=== PATIENT | female | born 1955 | race Caucasian/White ===

== ENCOUNTER → 2016-12-16 | Outpatient (CLI) | payer OTHER ==
[~2016-12-16] MED LIST: ADVAIR 250/501 EA INH; CARDIZEM LA240 MG PO; DARVOCET N 1001 TAB PO; HYDROCODONE BIT1 T11 PO; JANUVIA100 MG PO; LEVOFLOXACIN500 MG PO; LIPITOR40 MG PO; MAVIK2 MG PO; Metformin Hydr500 MG PO; PERCOCET 325 MG1 TA2 PO; ULTRAM50 MG PO; VALTREX1 GM PO; ZESTRIL2.5 MG PO; ZOFRAN ODT4 MG SL
== END | disposition home or self-care (01) ==
LOC: LAB 01:34
DX: L72.8 Other follicular cysts of the skin and subcutaneous tissue (principal)

== ENCOUNTER → 2016-12-26 | Outpatient (CLI) | payer OTHER ==
[2016-12-26 04:14] LABS: HEMOGLOBIN A1c 7.4 % (4.8-5.6)
== END | disposition home or self-care (01) ==
LOC: LAB 03:33
PROVIDERS: Internal Medicine
DX: E11.9 Type 2 diabetes mellitus without complications (principal)

== ENCOUNTER → 2017-01-04 | Day surgery (SDC) | payer OTHER ==
[2017-01-02 08:12] VITALS: BP 149/84
--- NOTE | ~2017-01-04 | PROC NOTE ---
[place], [place] PROCEDURE NOTE NAME: [id number] UNIT #: [id number] ROOM: DOCTOR: VAUGHN HANSON MD BIRTHDATE: [birth year] DOS: 01/04/2017 PREOPERATIVE DIAGNOSIS: Neck sebaceous cyst. POSTOPERATIVE DIAGNOSIS: Neck sebaceous cyst. PROCEDURE: Excision of neck sebaceous cyst. SURGEON: Vaughn Hanson MD ELECTRONIC ORGAN TECHNICIAN: None. ANESTHESIA: Local (1% plain lidocaine). INDICATIONS: This is a 61-year-old lady with a long-standing history of neck sebaceous cyst, who is here for the above-mentioned procedure. The procedure and its complications explained to the patient in detail. Complications that were discussed included but were not limited to bleeding, infection and prolonged pain. She agreed to proceed. DESCRIPTION OF PROCEDURE: After identifying the patient, the patient was brought to the operating suite and placed in the right lateral position. After the parts were painted and draped in the usual sterile fashion, timeout procedure was called. An incision was marked, local anesthesia was injected in the line of the incision. The incision was made and deepened in layers. The cyst was identified and was excised after it was dissected free from surrounding tissue. It was sent for histopathological diagnosis. Hemostasis was achieved with the help of electrocautery. Thereafter, the subcutaneous tissue was irrigated and approximated with the help of 3-0 Vicryl in an interrupted fashion and the skin edges were approximated with the help of 4-0 Vicryl in a subcuticular running fashion. Dressing was placed. The patient tolerated the procedure well. There were no complications. The patient was taken to the recovery room in a stable fashion. Vaughn Hanson MD CM:PROCNOTE:PROCEDURE NOTE 19 VAUGHN HANSON MD
[2017-01-04 07:08] VITALS: BP 144/77
[2017-01-04 07:38] VITALS: BP 137/96
[2017-01-04 07:43] VITALS: BP 154/95
[2017-01-04 07:48] VITALS: BP 146/93
[2017-01-04 07:53] VITALS: BP 131/98
== END | disposition home or self-care (01) ==
LOC: SDC 01-02 08:00
DX: L72.3 Sebaceous cyst (principal); E11.9 Type 2 diabetes mellitus without complications; F41.9 Anxiety disorder, unspecified; E78.00 Pure hypercholesterolemia, unspecified; Z83.3 Family history of diabetes mellitus; Z86.718 Personal history of other venous thrombosis and embolism

== ENCOUNTER → 2018-02-05 | Outpatient (CLI) | payer OTHER ==
[2018-02-06 00:35] LABS: BASO % 0.3 % (0.0-1.0); EOS # 0.1 10*3/uL (0.0-0.4); EOS % 1.1 % (1.0-4.0); HEMATOCRIT 45.8 % (37.0-47.0); HEMOGLOBIN 15.5 g/dl (12.0-16.0); LYMPH # 1.8 10*3/uL (1.3-4.4); LYMPH % 19.1 % (27.0-41.0); MEAN CELL VOLUME 94.2 fl (81.0-99.0); MEAN CORPUSCULAR HGB 31.9 pg (27.0-31.0); MEAN CORPUSCULAR HGB CONC 33.8 g/dl (33.0-37.0); MEAN PLATELET VOLUME 10.1 fl (9.6-12.3); MONO # 0.7 10*3/uL (0.1-1.0); MONO % 7.5 % (3.0-9.0); NEUT # 6.6 10*3/uL (2.3-7.9); NEUT % 71.7 % (47.0-73.0); PLATELET COUNT AUTOMATED 226 10*3/uL (130-400); RED BLOOD COUNT 4.86 10*6/uL (4.10-5.10); RED CELL DISTRI WIDTH 12.8 % (0-14.5); WHITE BLOOD COUNT 9.3 10*3/uL (4.8-10.8)
[2018-02-06 00:57] LABS: ALBUMIN 3.6 gm/dl (3.1-4.5); ALKALINE PHOSPHATASE 92 U/L (45-117); BUN 14 mg/dl (7-24); CHLORIDE 104 mmol/L (98-107); CHOLESTEROL 149 mg/dL (<200); FREE T4 0.92 ng/dl (0.76-1.46); HDL CHOLESTEROL 47 mg/dl (40-60); LDL CHOLESTEROL 77 mg/dL (9-159); POTASSIUM 4.4 mmol/L (3.5-5.1); SGOT/AST 8 IU/L (3-35); SGPT/ALT 24 U/L (12-78); SODIUM 136 mmol/L (136-145); TOTAL PROTEIN 7.3 gm/dL (6.4-8.2); TRIGLYCERIDES 127 mg/dl (<150); VLDL CHOLESTEROL 25 mg/dL (6-40)
[2018-02-06 01:45] LABS: VITAMIN D, 25-HYDROXY 23.2 ng/mL (30-100)
== END | disposition home or self-care (01) ==
LOC: LAB 22:59
PROVIDERS: Internal Medicine
DX: Z00.00 Encounter for general adult medical examination without abnormal findings (principal); Z13.1 Encounter for screening for diabetes mellitus; Z13.21 Encounter for screening for nutritional disorder; Z13.220 Encounter for screening for lipoid disorders; E11.9 Type 2 diabetes mellitus without complications; E55.9 Vitamin D deficiency, unspecified; R53.81 Other malaise

== ENCOUNTER → 2018-02-05 | Outpatient (CLI) | payer OTHER | END | disposition home or self-care (01) | LOC: RAD 02:58 | DX: M25.551 Pain in right hip (principal) ==

== ENCOUNTER → 2018-03-05 | Outpatient (CLI) | payer OTHER | END | disposition home or self-care (01) | LOC: MRI 02-24 14:00 | DX: M16.11 Unilateral primary osteoarthritis, right hip (principal); M70.61 Trochanteric bursitis, right hip ==

== ENCOUNTER → 2018-04-07 | Outpatient (CLI) | payer OTHER | END | disposition home or self-care (01) | LOC: NM 04:33 | DX: D16.21 Benign neoplasm of long bones of right lower limb (principal); C00-D49 Neoplasms ==

== ENCOUNTER → 2018-06-04 | Outpatient (CLI) | payer OTHER | END | disposition home or self-care (01) | LOC: MRI 05-21 11:00 | DX: M47.817 Spondylosis without myelopathy or radiculopathy, lumbosacral region (principal); I10 Essential (primary) hypertension; E11.9 Type 2 diabetes mellitus without complications ==

== ENCOUNTER → 2018-08-08 | Outpatient (CLI) | payer OTHER | END | disposition home or self-care (01) | LOC: MRI 08-07 03:22 | DX: M16.0 Bilateral primary osteoarthritis of hip (principal); S76.011A Strain of muscle, fascia and tendon of right hip, initial encounter; M25.451 Effusion, right hip; D16.9 Benign neoplasm of bone and articular cartilage, unspecified; D16.8 Benign neoplasm of pelvic bones, sacrum and coccyx; E11.9 Type 2 diabetes mellitus without complications; I10 Essential (primary) hypertension; M70.62 Trochanteric bursitis, left hip; K40.90 Unilateral inguinal hernia, without obstruction or gangrene, not specified as recurrent; R60.0 Localized edema; X58.XXXA Exposure to other specified factors, initial encounter; Y93.89 Activity, other specified; Y92.89 Other specified places as the place of occurrence of the external cause; Y99.8 Other external cause status ==

== ENCOUNTER → 2019-01-14 | Outpatient (CLI) | payer OTHER | END | disposition home or self-care (01) | LOC: RAD 01:53 | DX: M19.012 Primary osteoarthritis, left shoulder (principal); M51.35 Other intervertebral disc degeneration, thoracolumbar region; M85.88 Other specified disorders of bone density and structure, other site; M47.816 Spondylosis without myelopathy or radiculopathy, lumbar region ==

== ENCOUNTER → 2019-01-15 | Outpatient (CLI) | payer OTHER ==
[2019-01-15 02:09] LABS: BASO # 0.1 10*3/uL (0.0-0.1); BASO % 0.6 % (0.0-1.0); EOS # 0.1 10*3/uL (0.0-0.4); EOS % 1.2 % (1.0-4.0); HEMATOCRIT 46.5 % (37.0-47.0); HEMOGLOBIN 15.2 g/dl (12.0-16.0); LYMPH # 2.2 10*3/uL (1.3-4.4); LYMPH % 18.4 % (27.0-41.0); MEAN CELL VOLUME 98.9 fl (81.0-99.0); MEAN CORPUSCULAR HGB 32.3 pg (27.0-31.0); MEAN CORPUSCULAR HGB CONC 32.7 g/dl (33.0-37.0); MEAN PLATELET VOLUME 10.7 fl (9.6-12.3); MONO # 0.8 10*3/uL (0.1-1.0); MONO % 6.9 % (3.0-9.0); NEUT # 8.7 10*3/uL (2.3-7.9); NEUT % 72.4 % (47.0-73.0); PLATELET COUNT AUTOMATED 276 10*3/uL (130-400); RED CELL DISTRI WIDTH 12.7 % (0-14.5)
[2019-01-15 02:24] LABS: ALBUMIN 3.9 gm/dl (3.1-4.5); ALKALINE PHOSPHATASE 76 U/L (45-117); BUN 18 mg/dl (7-24); CHLORIDE 105 mmol/L (98-107); CREATININE 0.79 mg/dL (0.55-1.02); POTASSIUM 4.3 mmol/L (3.5-5.1); SGOT/AST 8 IU/L (3-35); SGPT/ALT 20 U/L (12-78); SODIUM 138 mmol/L (136-145); TOTAL PROTEIN 7.6 gm/dL (6.4-8.2); TRIGLYCERIDES 181 mg/dl (<150); VLDL CHOLESTEROL 36 mg/dL (6-40)
[2019-01-15 02:25] LABS: HDL CHOLESTEROL 40 mg/dl (40-60)
[2019-01-15 02:30] LABS: CHOLESTEROL 133 mg/dL (<200); LDL CHOLESTEROL 57 mg/dL (9-159)
[2019-01-15 03:04] LABS: T3 UPTAKE 35 % (31-39)
[2019-01-15 03:17] LABS: THYROXINE (T4) TOTAL 8.9 ug/dl (4.8-13.9)
[2019-01-15 07:17] LABS: VITAMIN D, 25-HYDROXY 24.7 ng/mL (30-100)
[2019-01-16 08:07] LABS: RHEUMATOID ARTHRITIS FACTOR <10.0 IU/mL (0.0-13.9)
[2019-01-16 15:08] LABS: ANTI-DSDNA ANTIBODIES 096339 <1 IU/mL (0-9)
[2019-01-16 22:09] LABS: CCP ANTIBODIES IGG/IGA 7 units (0-19)
== END | disposition home or self-care (01) ==
LOC: LAB 00:58
PROVIDERS: Internal Medicine
DX: Z00.00 Encounter for general adult medical examination without abnormal findings (principal); E78.2 Mixed hyperlipidemia; E11.65 Type 2 diabetes mellitus with hyperglycemia; I10 Essential (primary) hypertension

== ENCOUNTER → 2019-03-12 | Outpatient (CLI) | payer OTHER | END | disposition home or self-care (01) | LOC: MRI 03-11 09:00 | DX: M70.61 Trochanteric bursitis, right hip (principal); S76.011A Strain of muscle, fascia and tendon of right hip, initial encounter; M16.0 Bilateral primary osteoarthritis of hip; R60.0 Localized edema; K40.90 Unilateral inguinal hernia, without obstruction or gangrene, not specified as recurrent; Z90.710 Acquired absence of both cervix and uterus; Y93.89 Activity, other specified; X58.XXXA Exposure to other specified factors, initial encounter; Y92.89 Other specified places as the place of occurrence of the external cause; Y99.8 Other external cause status ==

== ENCOUNTER 2019-05-26 13:26 | Emergency (ER) | payer OTHER ==
[~2019-05-26] VITALS: Ht 154.9 cm; Wt 85.3 kg
[2019-05-26 13:30] VITALS: BP 154/74
== END 2019-05-26 14:30 | disposition home or self-care (01) ==
LOC: ED 13:26
DX: S61.011A Laceration without foreign body of right thumb without damage to nail, initial encounter (principal); Z88.5 Allergy status to narcotic agent; Z79.899 Other long term (current) drug therapy; Z90.710 Acquired absence of both cervix and uterus; W26.8XXA Contact with other sharp object(s), not elsewhere classified, initial encounter; Y93.G3 Activity, cooking and baking; Y92.89 Other specified places as the place of occurrence of the external cause; Y99.8 Other external cause status

== ENCOUNTER → 2019-11-20 | Outpatient (CLI) | payer OTHER ==
[2019-11-20 01:59] LABS: BASO # 0.1 10*3/uL (0.0-0.1); BASO % 0.7 % (0.0-1.0); EOS # 0.1 10*3/uL (0.0-0.4); EOS % 0.9 % (1.0-4.0); HEMATOCRIT 43.7 % (37.0-47.0); LYMPH # 2.1 10*3/uL (1.3-4.4); LYMPH % 20.2 % (27.0-41.0); MEAN CELL VOLUME 98.4 fl (81.0-99.0); MEAN CORPUSCULAR HGB 31.3 pg (27.0-31.0); MEAN CORPUSCULAR HGB CONC 31.8 g/dl (33.0-37.0); MEAN PLATELET VOLUME 9.9 fl (9.6-12.3); MONO # 0.8 10*3/uL (0.1-1.0); MONO % 7.7 % (3.0-9.0); NEUT # 7.2 10*3/uL (2.3-7.9); NEUT % 69.9 % (47.0-73.0); PLATELET COUNT AUTOMATED 284 10*3/uL (130-400); RED BLOOD COUNT 4.44 10*6/uL (4.10-5.10); RED CELL DISTRI WIDTH 12.6 % (0-14.5); WHITE BLOOD COUNT 10.3 10*3/uL (4.8-10.8)
[2019-11-20 02:21] LABS: ALBUMIN 3.5 gm/dl (3.1-4.5); ALKALINE PHOSPHATASE 77 U/L (45-117); BUN 19 mg/dl (7-24); CHLORIDE 106 mmol/L (98-107); CHOLESTEROL 126 mg/dL (<200); CREATININE 0.94 mg/dL (0.55-1.02); FREE T4 1.06 ng/dl (0.76-1.46); HDL CHOLESTEROL 41 mg/dl (40-60); LDL CHOLESTEROL 51 mg/dL (9-159); POTASSIUM 4.4 mmol/L (3.5-5.1); SGOT/AST 16 IU/L (3-35); SGPT/ALT 31 U/L (12-78); SODIUM 137 mmol/L (136-145); TOTAL PROTEIN 7.2 gm/dL (6.4-8.2); TRIGLYCERIDES 171 mg/dl (<150); VLDL CHOLESTEROL 34 mg/dL (6-40)
[2019-11-20 07:47] LABS: VITAMIN D, 25-HYDROXY 25.7 ng/mL (30-100)
== END | disposition home or self-care (01) ==
LOC: LAB 00:55
PROVIDERS: Internal Medicine
DX: I10 Essential (primary) hypertension (principal); M16.11 Unilateral primary osteoarthritis, right hip; J44.9 Chronic obstructive pulmonary disease, unspecified; D16.21 Benign neoplasm of long bones of right lower limb; K57.92 Diverticulitis of intestine, part unspecified, without perforation or abscess without bleeding; F17.210 Nicotine dependence, cigarettes, uncomplicated; E11.65 Type 2 diabetes mellitus with hyperglycemia; M70.61 Trochanteric bursitis, right hip; R53.81 Other malaise; R79.89 Other specified abnormal findings of blood chemistry

== ENCOUNTER → 2019-12-01 | Outpatient (CLI) | payer OTHER | END | disposition home or self-care (01) | LOC: CARD 11-24 13:00 | DX: I65.23 Occlusion and stenosis of bilateral carotid arteries (principal); I51.7 Cardiomegaly ==

== ENCOUNTER → 2019-12-15 | Outpatient (CLI) | payer OTHER | END | disposition home or self-care (01) | LOC: CT 07:48 | DX: I65.23 Occlusion and stenosis of bilateral carotid arteries (principal) ==

== ENCOUNTER → 2021-01-10 | Outpatient (CLI) | payer OTHER | END | disposition home or self-care (01) | LOC: CT 12-20 09:41 | PROVIDERS: ATTEND Internal Medicine | DX: I65.23 Occlusion and stenosis of bilateral carotid arteries (principal); J98.11 Atelectasis; E04.2 Nontoxic multinodular goiter ==

== ENCOUNTER → 2021-09-14 | Outpatient (CLI) | payer OTHER, MEDICARE | END | disposition home or self-care (01) | LOC: MAMMO 08-30 13:30 → RAD 08-30 13:30 → MAMMO 08-30 14:00 → RAD 13:30 | PROVIDERS: ATTEND Internal Medicine | DX: Z12.31 Encounter for screening mammogram for malignant neoplasm of breast (principal); N64.89 Other specified disorders of breast; M85.851 Other specified disorders of bone density and structure, right thigh; Z78.0 Asymptomatic menopausal state ==

== ENCOUNTER 2021-11-26 13:42 | Emergency (ER) | payer OTHER, MEDICARE ==
[2021-11-26 13:43] VITALS: BP 127/65
== END 2021-11-26 15:25 | disposition home or self-care (01) ==
LOC: ED 13:42
DX: S80.11XA Contusion of right lower leg, initial encounter (principal); Z88.6 Allergy status to analgesic agent; Z79.899 Other long term (current) drug therapy; Z90.89 Acquired absence of other organs; Z90.710 Acquired absence of both cervix and uterus; W18.39XA Other fall on same level, initial encounter; Y93.89 Activity, other specified; Y92.89 Other specified places as the place of occurrence of the external cause; Y99.8 Other external cause status

== ENCOUNTER 2021-12-11 12:36 | Emergency (ER) | payer OTHER, MEDICARE ==
[~2021-12-11] VITALS: Ht 154.9 cm; Wt 81.6 kg
[2021-12-11 12:53] VITALS: BP 167/90
[2021-12-11] MEDS ORDERED: HYDROCODONE-AC1 EAC1 PO (15:36)
[2021-12-11] MEDS ORDERED: CEPHALEXIN500 M1 PO (17:13)
== END 2021-12-11 16:00 | disposition home or self-care (01) ==
LOC: ED 12:36
DX: S80.11XA Contusion of right lower leg, initial encounter (principal); L03.115 Cellulitis of right lower limb; M54.50 Low back pain, unspecified; Z90.710 Acquired absence of both cervix and uterus; Z79.899 Other long term (current) drug therapy; Z88.5 Allergy status to narcotic agent; W18.30XA Fall on same level, unspecified, initial encounter; Y93.89 Activity, other specified; Y92.89 Other specified places as the place of occurrence of the external cause; Y99.9 Unspecified external cause status

== ENCOUNTER → 2022-01-02 | Outpatient (CLI) | payer OTHER, MEDICARE ==
[~2022-01-02] MED LIST changes: +CEPHALEXIN500 M1 PO; +HYDROCODONE-AC1 EAC1 PO
== END | disposition home or self-care (01) ==
LOC: RAD 09:00 → US 11:00
PROVIDERS: ATTEND Internal Medicine
DX: I87.2 Venous insufficiency (chronic) (peripheral) (principal)

== ENCOUNTER → 2022-04-23 | Outpatient (CLI) | payer OTHER, MEDICARE | END | disposition home or self-care (01) | LOC: US 13:00 | PROVIDERS: ATTEND Surgery Vascular Surgery | DX: I65.23 Occlusion and stenosis of bilateral carotid arteries (principal) ==

== ENCOUNTER → 2022-05-18 | Outpatient (CLI) | payer OTHER, MEDICARE ==
[2022-05-18 19:21] LABS: BASO # 0.1 10*3/uL (0.0-0.1); BASO % 0.9 % (0.0-1.0); EOS # 0.2 10*3/uL (0.0-0.4); EOS % 2.2 % (1.0-4.0); HEMATOCRIT 41.2 % (37.0-47.0); LYMPH # 2.6 10*3/uL (1.3-4.4); LYMPH % 25.6 % (27.0-41.0); MEAN CELL VOLUME 79.1 fl (81.0-99.0); MEAN CORPUSCULAR HGB 24.4 pg (27.0-31.0); MEAN CORPUSCULAR HGB CONC 30.8 g/dl (33.0-37.0); MEAN PLATELET VOLUME 9.1 fl (9.6-12.3); MONO # 0.7 10*3/uL (0.1-1.0); MONO % 7.2 % (3.0-9.0); NEUT # 6.4 10*3/uL (2.3-7.9); NEUT % 63.7 % (47.0-73.0); PLATELET COUNT AUTOMATED 328 10*3/uL (130-400); RED BLOOD COUNT 5.21 10*6/uL (4.10-5.10); RED CELL DISTRI WIDTH 17.3 % (0-14.5); WHITE BLOOD COUNT 10.1 10*3/uL (4.8-10.8)
[2022-05-18 19:43] LABS: ALKALINE PHOSPHATASE 104 U/L (46-116); BUN 12 mg/dl (9-23); CHLORIDE 102 mmol/L (98-107); CHOLESTEROL 101 mg/dL (<200); CREATININE 0.83 mg/dL (0.55-1.02); FREE T4 1.32 ng/dl (0.89-1.76); LDL CHOLESTEROL 31 mg/dL (9-159); POTASSIUM 4.3 mmol/L (3.4-5.1); SGPT/ALT 33 U/L (10-49); THYROID STIM HORMONE (HS) 1.161 uIU/ml (0.550-4.780); TOTAL PROTEIN 6.8 gm/dL (6.0-8.0); TRIGLYCERIDES 175 mg/dl (<150)
[2022-05-18 19:44] LABS: VITAMIN D, 25-HYDROXY 24.3 ng/mL (30-100)
== END | disposition home or self-care (01) ==
LOC: LAB 18:53
PROVIDERS: ATTEND Internal Medicine
DX: Z13.89 Encounter for screening for other disorder (principal); E11.65 Type 2 diabetes mellitus with hyperglycemia; I10 Essential (primary) hypertension; Z13.820 Encounter for screening for osteoporosis; Z13.0 Encounter for screening for diseases of the blood and blood-forming organs and certain disorders involving the immune mechanism; E55.9 Vitamin D deficiency, unspecified; Z13.1 Encounter for screening for diabetes mellitus; Z13.21 Encounter for screening for nutritional disorder; Z13.220 Encounter for screening for lipoid disorders; Z13.228 Encounter for screening for other metabolic disorders; Z13.29 Encounter for screening for other suspected endocrine disorder; Z13.6 Encounter for screening for cardiovascular disorders

== ENCOUNTER → 2022-09-10 | Outpatient (CLI) | payer OTHER, MEDICARE ==
[2022-09-10 08:27] LABS: BASO # 0.1 10*3/uL (0.0-0.1); BASO % 0.8 % (0.0-1.0); EOS # 0.2 10*3/uL (0.0-0.4); EOS % 2.2 % (1.0-4.0); HEMATOCRIT 43.9 % (37.0-47.0); LYMPH # 2.5 10*3/uL (1.3-4.4); LYMPH % 25.2 % (27.0-41.0); MEAN CELL VOLUME 83.5 fl (81.0-99.0); MEAN CORPUSCULAR HGB 26.2 pg (27.0-31.0); MEAN CORPUSCULAR HGB CONC 31.4 g/dl (33.0-37.0); MEAN PLATELET VOLUME 9.2 fl (9.6-12.3); MONO # 0.7 10*3/uL (0.1-1.0); MONO % 7.2 % (3.0-9.0); NEUT # 6.5 10*3/uL (2.3-7.9); NEUT % 64.3 % (47.0-73.0); PLATELET COUNT AUTOMATED 272 10*3/uL (130-400); RED BLOOD COUNT 5.26 10*6/uL (4.10-5.10); RED CELL DISTRI WIDTH 16.7 % (0-14.5)
[2022-09-10 09:24] LABS: ALKALINE PHOSPHATASE 93 U/L (46-116); BUN 7 mg/dl (9-23); CHLORIDE 104 mmol/L (98-107); CHOLESTEROL 102 mg/dL (<200); FREE T4 1.08 ng/dl (0.89-1.76); LDL CHOLESTEROL 21 mg/dL (9-159); SGPT/ALT 33 U/L (10-49); TOTAL PROTEIN 6.9 gm/dL (6.0-8.0); TRIGLYCERIDES 205 mg/dl (<150)
[2022-09-10 09:34] LABS: VITAMIN D, 25-HYDROXY 49.3 ng/mL (30-100)
== END | disposition home or self-care (01) ==
LOC: LAB 07:57
PROVIDERS: ATTEND Internal Medicine
DX: Z01.812 Encounter for preprocedural laboratory examination (principal)

== ENCOUNTER → 2022-09-14 | Outpatient (CLI) | payer OTHER, MEDICARE | END | disposition home or self-care (01) | LOC: CT 09-07 14:00 | PROVIDERS: ATTEND Internal Medicine | DX: I65.22 Occlusion and stenosis of left carotid artery (principal); I10 Essential (primary) hypertension; E04.1 Nontoxic single thyroid nodule ==

== ENCOUNTER → 2022-12-05 | Outpatient (CLI) | payer OTHER | END | disposition home or self-care (01) | LOC: RAD 11:31 | PROVIDERS: ATTEND Internal Medicine | DX: S22.080A Wedge compression fracture of T11-T12 vertebra, initial encounter for closed fracture (principal); X58.XXXA Exposure to other specified factors, initial encounter; Y93.89 Activity, other specified; Y92.89 Other specified places as the place of occurrence of the external cause; Y99.8 Other external cause status ==

== ENCOUNTER → 2022-12-11 | Outpatient (CLI) | payer OTHER | END | disposition home or self-care (01) | LOC: MRI 00:31 | PROVIDERS: ATTEND Internal Medicine | DX: M48.54XA Collapsed vertebra, not elsewhere classified, thoracic region, initial encounter for fracture (principal); M47.814 Spondylosis without myelopathy or radiculopathy, thoracic region; M48.04 Spinal stenosis, thoracic region; M51.24 Other intervertebral disc displacement, thoracic region ==

== ENCOUNTER → 2023-07-25 | Outpatient (CLI) | payer OTHER | END | disposition home or self-care (01) | LOC: US 12:44 | PROVIDERS: ATTEND Surgery Vascular Surgery | DX: I65.23 Occlusion and stenosis of bilateral carotid arteries (principal) ==

== ENCOUNTER 2024-04-02 07:44 | Inpatient (IN) | payer OTHER, MEDICARE ==
[~2024-04-02] VITALS: Ht 154.9 cm; Wt 80.3 kg
[~2024-04-02 07:44] MED LIST changes: +'CYTOTEC200 MCG PO; +AMITRIPTYLINE50 MG PO; +CYMBALTA30 MG PO; +DICLOFENAC SOD75 MG PO; +ELIQUIS5 M1 PO; +FLECAINIDE ACE100 M1 PO; +FUROSEMIDE40 MG PO; +GLUCOPHAGE500 MG PO; +HYDRALAZINE HYD50 MG PO; +LISINOPRIL5 MG PO; +METOPROLOL SUC100 M1 PO; -Metformin Hydr500 MG PO; +NEURONTIN300 MG PO; +TRAMADOL HCL50 MG PO; +TRULICITY3 MG/0.5 M SQ; +ZETIA10 MG PO
[2024-04-02 07:55] VITALS: BP 138/96
[2024-04-02] MEDS ORDERED: MORPHINE Sulfate 2 MG/ML SYR IV ONE (08:00)
[2024-04-02] MEDS ORDERED: Ondansetron Hydrochloride 4 MG/2 ML VIAL IV ONE (08:00)
[2024-04-02] MEDS ORDERED: VALTREX1000 MG PO (08:21)
[2024-04-02 08:30] LABS: BASO # 0.1 10*3/uL (0.0-0.1); BASO % 0.6 % (0.0-1.0); EOS % 0.4 % (1.0-4.0); HEMATOCRIT 44.6 % (37.0-47.0); MEAN CELL VOLUME 94.9 fl (81.0-99.0); MEAN CORPUSCULAR HGB 30.4 pg (27.0-31.0); MEAN CORPUSCULAR HGB CONC 32.1 g/dl (33.0-37.0); MEAN PLATELET VOLUME 10.3 fl (9.6-12.3); MONO # 0.7 10*3/uL (0.1-1.0); MONO % 7.7 % (3.0-9.0); NEUT # 6.7 10*3/uL (2.3-7.9); NEUT % 70.1 % (47.0-73.0); PLATELET COUNT AUTOMATED 231 10*3/uL (130-400); WHITE BLOOD COUNT 9.6 10*3/uL (4.8-10.8)
[2024-04-02 08:44] LABS: BUN 12 mg/dl (9-23); CHLORIDE 105 mmol/L (98-107); LIPASE 45 U/L (12-53); POTASSIUM 4.2 mmol/L (3.4-5.1)
[2024-04-02 10:02] LABS: BILIRUBIN Negative (Negative); BLOOD Negative (Negative); CLARITY Clear (Clear); COLOR Yellow (Yellow); GLUCOSE 3+ (Negative); KETONE Negative (Negative); LEUKO ESTERASE Negative (Negative); NITRITE Negative (Negative); PH 5.5 (4.5-8.0); UROBILINOGEN 0.2 E.U./dl (0.0-1.0)
[2024-04-02 10:13] LABS: BACTERIA 1+; MUCOUS TRACE
[2024-04-02 13:00] VITALS: BP 140/96
[2024-04-02] MEDS ORDERED: SODIUM CHLORIDE 0.9% 1,000 ML IV SCH (14:40)
[2024-04-02] MEDS ORDERED: Albuterol Sulf/Ipratropium 3 ML VIAL NEB SCH (14:45)
[2024-04-02] MEDS ORDERED: Ondansetron Hydrochloride 4 MG/2 ML VIAL IV PRN (14:45)
[2024-04-02] MEDS ORDERED: TRAMADOL HCL50 MG PO (14:56)
[2024-04-02] MEDS ORDERED: HYDROCODONE-AC1 EAC1 PO (14:58)
[2024-04-02] MEDS ORDERED: Acetaminophen/Hydrocodone 5 MG/325 MG TABLET PO PRN (15:00)
[2024-04-02] MEDS ORDERED: Ceftriaxone Sodium 1 GM in SYRINGE INFUSION 10 ML IV SCH (16:00)
[2024-04-02] MEDS ORDERED: Dicyclomine Hydrochloride 10 MG CAP PO SCH (22:00)
[2024-04-02] MEDS ORDERED: Metoclopramide Hydrochloride 5 MG TAB PO SCH (22:00)
[2024-04-02] MEDS ORDERED: GABAPENTIN 300 MG CAP PO SCH (22:00)
[2024-04-02] MEDS ORDERED: FLECAINIDE ACETATE 100 MG TAB PO SCH (22:00)
[2024-04-02] MEDS ORDERED: HYOSCYAMINE SULFATE 0.125 MG TAB PO SCH (22:00)
[2024-04-02] MEDS ORDERED: hydrALAZINE hydrochloride 50 MG TAB PO SCH (22:00)
[2024-04-03] MEDS ORDERED: EZETIMIBE 10 MG TAB PO SCH (10:00)
== END 2024-04-02 16:46 | disposition left against medical advice (07) | DRG 378 ==
LOC: ED 07:44 → EDHOLD 08:45 → 4E 12:37
PROVIDERS: Emergency Medicine; ADMIT Internal Medicine; ATTEND Internal Medicine
DX: K92.2 Gastrointestinal hemorrhage, unspecified (principal); I48.21 Permanent atrial fibrillation; J44.9 Chronic obstructive pulmonary disease, unspecified; Z53.29 Procedure and treatment not carried out because of patient's decision for other reasons; I10 Essential (primary) hypertension; Z79.899 Other long term (current) drug therapy; Z88.5 Allergy status to narcotic agent; Z90.710 Acquired absence of both cervix and uterus; Z98.41 Cataract extraction status, right eye; Z79.01 Long term (current) use of anticoagulants

== ENCOUNTER 2024-04-10 05:35 | Inpatient (IN) | payer OTHER, MEDICARE ==
[~2024-04-10] VITALS: Ht 154.9 cm; Wt 79.4 kg
[~2024-04-10 05:35] MED LIST changes: +VALTREX1000 MG PO
[2024-04-10] MEDS ORDERED: Albuterol Sulf/Ipratropium 3 ML VIAL NEB ONE (05:45)
[2024-04-10] MEDS ORDERED: methylPREDNISolone sod succ 125 MG VIAL IV ONE (05:45)
[2024-04-10 05:54] VITALS: BP 127/94
[2024-04-10 06:17] LABS: BASO # 0.1 10*3/uL (0.0-0.1); BASO % 0.4 % (0.0-1.0); EOS # 0.1 10*3/uL (0.0-0.4); EOS % 0.7 % (1.0-4.0); HEMATOCRIT 44.3 % (37.0-47.0); MEAN CELL VOLUME 96.9 fl (81.0-99.0); MEAN CORPUSCULAR HGB 30.9 pg (27.0-31.0); MEAN CORPUSCULAR HGB CONC 31.8 g/dl (33.0-37.0); MEAN PLATELET VOLUME 10.3 fl (9.6-12.3); MONO # 0.9 10*3/uL (0.1-1.0); MONO % 7.8 % (3.0-9.0); NEUT # 7.3 10*3/uL (2.3-7.9); NEUT % 65.3 % (47.0-73.0); PLATELET COUNT AUTOMATED 269 10*3/uL (130-400); RED BLOOD COUNT 4.57 10*6/uL (4.10-5.10); RED CELL DISTRI WIDTH 17.2 % (0-14.5); WHITE BLOOD COUNT 11.1 10*3/uL (4.8-10.8)
[2024-04-10 06:57] LABS: POTASSIUM 4.9 mmol/L (3.4-5.1); TOTAL PROTEIN 6.2 gm/dL (6.0-8.0)
[2024-04-10] MEDS ORDERED: Diltiazem Hydrochloride 25 MG/5 ML VIAL IV ONE (07:30)
[2024-04-10] MEDS ORDERED: BUMETANIDE 1 MG/4 ML VIAL IV ONE (07:30)
[2024-04-10] MEDS ORDERED: Levalbuterol Hydrochloride 0.63 MG VIAL NEB SCH (09:06)
[2024-04-10] MEDS ORDERED: Ceftriaxone Sodium 10 ML IV SCH (10:00)
[2024-04-10] MEDS ORDERED: FUROSEMIDE 40 MG/4 ML VIAL IV SCH (10:00)
[2024-04-10 11:12] VITALS: BP 118/73
[2024-04-10 14:30] VITALS: BP 120/83
[2024-04-10 18:00] VITALS: BP 120/83
[2024-04-10] MEDS ORDERED: methylPREDNISolone sod succ 40 MG VIAL IV SCH (18:00)
[2024-04-10] MEDS ORDERED: DEXTROSE 10 % IN WATER 250 ML IV PRN (19:45)
[2024-04-10] MEDS ORDERED: Acetaminophen/Hydrocodone 5 MG/325 MG TABLET PO PRN (19:50)
[2024-04-10 20:00] VITALS: BP 140/94
[2024-04-10] MEDS ORDERED: APIXABAN 5 MG TAB PO SCH (22:00)
[2024-04-10] MEDS ORDERED: Amitriptyline Hydrochloride 50 MG TAB PO SCH (22:00)
[2024-04-10] MEDS ORDERED: FLECAINIDE ACETATE 100 MG TAB PO SCH (22:00)
[2024-04-10] MEDS ORDERED: METOPROLOL SUCCINATE XR 100 MG TAB PO SCH (22:00)
[2024-04-10] MEDS ORDERED: hydrALAZINE hydrochloride 50 MG TAB PO SCH (22:00)
[2024-04-10] MEDS ORDERED: GABAPENTIN 300 MG CAP PO SCH (22:00)
[2024-04-10] MEDS ORDERED: INSULIN REGULAR, HUMAN 1 UNIT/0.01 ML SC SCH (22:00)
[2024-04-11] VITALS: BP 97/59
[2024-04-11 06:30] VITALS: BP 115/85
[2024-04-11 08:00] VITALS: BP 110/82
[2024-04-11] MEDS ORDERED: LINAGLIPTIN 5 MG TAB PO SCH (10:00)
[2024-04-11] MEDS ORDERED: Duloxetine Hydrochloride 30 MG CAP PO SCH (10:00)
[2024-04-11] MEDS ORDERED: RIFAXIMIN 550 MG TAB PO SCH (10:00)
[2024-04-11] MEDS ORDERED: ATORVASTATIN CALCIUM 40 MG TABLET PO SCH (10:00)
[2024-04-11] MEDS ORDERED: LISINOPRIL 5 MG TAB PO SCH (10:00)
[2024-04-11] MEDS ORDERED: Lactobacillus Acidophilus/LA 1 TAB TAB PO SCH (10:00)
[2024-04-11] MEDS ORDERED: EZETIMIBE 10 MG TAB PO SCH (10:00)
[2024-04-11 12:00] VITALS: BP 123/89
[2024-04-11 16:00] VITALS: BP 103/66
[2024-04-11] MEDS ORDERED: Nicotine 21 MG PATCH T SCH (16:55)
[2024-04-11] MEDS ORDERED: methylPREDNISolone sod succ 40 MG VIAL IV SCH (18:00)
[2024-04-11 20:00] VITALS: BP 113/78
[2024-04-12] VITALS: BP 106/73
[2024-04-12 06:12] LABS: BASO % 0.2 % (0.0-1.0); EOS % 0.1 % (1.0-4.0); HEMATOCRIT 40.8 % (37.0-47.0); MEAN CELL VOLUME 96.7 fl (81.0-99.0); MEAN CORPUSCULAR HGB 31.3 pg (27.0-31.0); MEAN CORPUSCULAR HGB CONC 32.4 g/dl (33.0-37.0); MEAN PLATELET VOLUME 10.6 fl (9.6-12.3); MONO % 7.8 % (3.0-9.0); NEUT # 10.5 10*3/uL (2.3-7.9); NEUT % 78.7 % (47.0-73.0); PLATELET COUNT AUTOMATED 246 10*3/uL (130-400); RED BLOOD COUNT 4.22 10*6/uL (4.10-5.10); RED CELL DISTRI WIDTH 17.1 % (0-14.5); WHITE BLOOD COUNT 13.3 10*3/uL (4.8-10.8)
[2024-04-12 07:04] LABS: POTASSIUM 4.8 mmol/L (3.4-5.1)
[2024-04-12 08:00] VITALS: BP 111/83
[2024-04-12] MEDS ORDERED: Levalbuterol Hydrochloride 1.25 MG VIAL NEB SCH (09:06)
[2024-04-12 12:00] VITALS: BP 115/78
[2024-04-12 16:00] VITALS: BP 120/84
[2024-04-12 20:00] VITALS: BP 116/84
[2024-04-12] MEDS ORDERED: FLECAINIDE ACETATE 100 MG TAB PO SCH (22:00)
[2024-04-13] VITALS (9 sets, daily range): BP systolic 95–143; BP diastolic 62–97
[2024-04-13 02:53] LABS: ABG BASE EXCESS -0.3 mmol/L (-2.0-3.0); ABG O2 SATURATION 94.9 % (94.0-98.0); ARTERIAL BLOOD GAS PH 7.434 (7.350-7.450); ARTERIAL BLOOD GAS PO2 72.2 mmHg (83.0-108.0)
[2024-04-13] MEDS ORDERED: SODIUM CHLORIDE 0.9% 500 ML IV ONE (03:05)
[2024-04-13 03:22] LABS: HEMATOCRIT 43.9 % (37.0-47.0); MEAN CELL VOLUME 97.6 fl (81.0-99.0); MEAN CORPUSCULAR HGB 30.7 pg (27.0-31.0); MEAN CORPUSCULAR HGB CONC 31.4 g/dl (33.0-37.0); MEAN PLATELET VOLUME 10.6 fl (9.6-12.3); PLATELET COUNT AUTOMATED 259 10*3/uL (130-400); RED CELL DISTRI WIDTH 16.9 % (0-14.5); WHITE BLOOD COUNT 16.4 10*3/uL (4.8-10.8)
[2024-04-13 03:25] LABS: MANUAL DIFF REFLEX YES
[2024-04-13 03:41] LABS: POTASSIUM 4.4 mmol/L (3.4-5.1)
[2024-04-13 03:51] LABS: PLATELET SUFFICIENCY NORMAL (NORMAL); TOTAL CELLS COUNTED 100 #CELLS
[2024-04-13] MEDS ORDERED: SODIUM CHLORIDE 0.9% 10 ML VIAL IV SCH (06:55)
[2024-04-13] MEDS ORDERED: SODIUM CHLORIDE 0.9% 100 ML BAG IV ONE (07:00)
[2024-04-13] MEDS ORDERED: IOHEXOL 350 MG/ML 100 ML VIAL IV ONE (07:00)
[2024-04-13] MEDS ORDERED: SODIUM CHLORIDE 0.9% 1,000 ML IV SCH (08:25)
[2024-04-13] MEDS ORDERED: DIAZEPAM 5 MG TAB PO ONE (09:05)
[2024-04-13] MEDS ORDERED: DIGOXIN 500 MCG/2 ML AMP IV SCH (16:00)
[2024-04-14] VITALS: BP 123/74
[2024-04-14 04:43] LABS: HEMATOCRIT 42.7 % (37.0-47.0); MEAN CELL VOLUME 94.9 fl (81.0-99.0); MEAN CORPUSCULAR HGB 31.3 pg (27.0-31.0); MEAN PLATELET VOLUME 10.8 fl (9.6-12.3); PLATELET COUNT AUTOMATED 226 10*3/uL (130-400); RED CELL DISTRI WIDTH 16.8 % (0-14.5); WHITE BLOOD COUNT 13.2 10*3/uL (4.8-10.8)
[2024-04-14 04:44] LABS: MANUAL DIFF REFLEX YES
[2024-04-14 06:19] LABS: POTASSIUM 4.7 mmol/L (3.4-5.1)
[2024-04-14 07:20] LABS: TOTAL CELLS COUNTED 100 #CELLS
[2024-04-14 07:21] LABS: PLATELET SUFFICIENCY NORMAL (NORMAL); POLYCHROMASIA SLIGHT; TARGET CELLS FEW
[2024-04-14 08:00] VITALS: BP 117/56
[2024-04-14] MEDS ORDERED: GLIMEPIRIDE4 M1 PO ×2 (08:45→08:46)
[2024-04-14] MEDS ORDERED: LACTINEX 0.2 MG1 TAB PO (08:45)
[2024-04-14] MEDS ORDERED: XIFAXAN550 MG PO (08:45)
[2024-04-14] MEDS ORDERED: PREDNISONE5 MG PO (08:45)
[2024-04-14] MEDS ORDERED: methylPREDNISolone sod succ 40 MG VIAL IV SCH (10:00)
== END 2024-04-14 11:05 | disposition home or self-care (01) | DRG 291 ==
LOC: ED 05:35 → 4E 08:57 → EDHOLD 08:57 → 4E 14:46
PROVIDERS: Internal Medicine; ADMIT Internal Medicine; ATTEND Internal Medicine
DX: I13.0 Hypertensive heart and chronic kidney disease with heart failure and stage 1 through stage 4 chronic kidney disease, or unspecified chronic kidney disease (principal); I50.43 Acute on chronic combined systolic (congestive) and diastolic (congestive) heart failure; J44.1 Chronic obstructive pulmonary disease with (acute) exacerbation; E87.20 Acidosis, unspecified; I48.21 Permanent atrial fibrillation; G45.9 Transient cerebral ischemic attack, unspecified; N17.9 Acute kidney failure, unspecified; J91.8 Pleural effusion in other conditions classified elsewhere; E44.1 Mild protein-calorie malnutrition; L03.115 Cellulitis of right lower limb; E87.1 Hypo-osmolality and hyponatremia; K92.2 Gastrointestinal hemorrhage, unspecified; G93.40 Encephalopathy, unspecified; J44.0 Chronic obstructive pulmonary disease with (acute) lower respiratory infection; J20.9 Acute bronchitis, unspecified; N18.9 Chronic kidney disease, unspecified; G89.29 Other chronic pain; M54.50 Low back pain, unspecified; E78.2 Mixed hyperlipidemia; E66.9 Obesity, unspecified; I48.0 Paroxysmal atrial fibrillation; E11.65 Type 2 diabetes mellitus with hyperglycemia; F17.210 Nicotine dependence, cigarettes, uncomplicated; E78.00 Pure hypercholesterolemia, unspecified; F41.1 Generalized anxiety disorder; F32.A Depression, unspecified; I25.10 Atherosclerotic heart disease of native coronary artery without angina pectoris; B02.9 Zoster without complications; S80.11XA Contusion of right lower leg, initial encounter; T38.0X5A Adverse effect of glucocorticoids and synthetic analogues, initial encounter; E11.22 Type 2 diabetes mellitus with diabetic chronic kidney disease; Z88.8 Allergy status to other drugs, medicaments and biological substances; Z91.09 Other allergy status, other than to drugs and biological substances; Z79.899 Other long term (current) drug therapy; Z79.01 Long term (current) use of anticoagulants; Z79.2 Long term (current) use of antibiotics; Z90.710 Acquired absence of both cervix and uterus; Z98.42 Cataract extraction status, left eye; Z68.33 Body mass index [BMI] 33.0-33.9, adult; Z98.41 Cataract extraction status, right eye; Z90.49 Acquired absence of other specified parts of digestive tract; Z83.3 Family history of diabetes mellitus; W18.39XA Other fall on same level, initial encounter; Y93.89 Activity, other specified; Y92.89 Other specified places as the place of occurrence of the external cause; Y99.8 Other external cause status

== ENCOUNTER → 2024-04-20 | Day surgery (SDC) | payer OTHER, MEDICARE ==
[~2024-04-20] MED LIST changes: +GLIMEPIRIDE4 M1 PO; +LACTINEX 0.2 MG1 TAB PO; +PREDNISONE5 MG PO; +XIFAXAN550 MG PO
== END | disposition home or self-care (01) ==
LOC: SDC 04-17 10:15
PROVIDERS: ATTEND Surgery
DX: R19.4 Change in bowel habit (principal); Z53.8 Procedure and treatment not carried out for other reasons

== ENCOUNTER 2024-05-17 17:16 | Inpatient (IN) | payer OTHER, MEDICARE ==
[2024-05-17] VITALS (7 sets, daily range): BP systolic 79–133; BP diastolic 43–94
[~2024-05-17] VITALS: Ht 154.9 cm; Wt 83.9 kg
[2024-05-17] MEDS ORDERED: SODIUM CHLORIDE 0.9% 250 ML IV ONE (17:20)
[2024-05-17] MEDS ORDERED: Diltiazem Hydrochloride 100 ML IV SCH (17:35)
[2024-05-17 18:02] LABS: BASO % 0.1 % (0.0-1.0); EOS % 0.2 % (1.0-4.0); HEMATOCRIT 49.4 % (37.0-47.0); MEAN CELL VOLUME 93.6 fl (81.0-99.0); MEAN CORPUSCULAR HGB 29.7 pg (27.0-31.0); MEAN CORPUSCULAR HGB CONC 31.8 g/dl (33.0-37.0); MEAN PLATELET VOLUME 11.3 fl (9.6-12.3); MONO # 0.7 10*3/uL (0.1-1.0); MONO % 6.1 % (3.0-9.0); NEUT # 9.9 10*3/uL (2.3-7.9); NEUT % 81.7 % (47.0-73.0); NUCLEATED RED BLOOD CELL 0.2 % (0.0-0.0); PLATELET COUNT AUTOMATED 147 10*3/uL (130-400); RED BLOOD COUNT 5.28 10*6/uL (4.10-5.10); RED CELL DISTRI WIDTH 15.9 % (0-14.5); WHITE BLOOD COUNT 12.1 10*3/uL (4.8-10.8)
[2024-05-17] MEDS ORDERED: Piperacillin Sodium/Tazobact 50 ML IV ONE (18:40)
[2024-05-17] MEDS ORDERED: Vancomycin Hydrochloride 250 ML IV ONE (18:40)
[2024-05-17] MEDS ORDERED: FUROSEMIDE 40 MG/4 ML VIAL IV ONE (18:40)
[2024-05-17] MEDS ORDERED: BUMETANIDE 1 MG/4 ML VIAL IV ONE (20:30)
[2024-05-17] MEDS ORDERED: ACETAMINOPHEN 325 MG TAB PO ONE (22:10)
[2024-05-17 23:54] LABS: BILIRUBIN Negative (Negative); BLOOD Negative (Negative); CLARITY Clear (Clear); COLOR Yellow (Yellow); GLUCOSE Negative (Negative); KETONE Negative (Negative); LEUKO ESTERASE Negative (Negative); NITRITE Negative (Negative)
[2024-05-18] VITALS (11 sets, daily range): BP systolic 101–143; BP diastolic 65–91
[2024-05-18 00:07] LABS: RBC 0-2 rbc/hpf (0-2); WBC 0-2 wbc/hpf (0-5)
[2024-05-18 00:08] LABS: BACTERIA TRACE; MUCOUS TRACE
[2024-05-18] MEDS ORDERED: DILTIAZEM HYDROCHLORIDE IV ONE (01:55)
[2024-05-18 05:59] LABS: BASO % 0.1 % (0.0-1.0); POTASSIUM 4.3 mmol/L (3.4-5.1)
[2024-05-18 06:04] LABS: EOS % 0.1 % (1.0-4.0); HEMATOCRIT 41.2 % (37.0-47.0); MEAN CELL VOLUME 91.8 fl (81.0-99.0); MEAN CORPUSCULAR HGB 30.1 pg (27.0-31.0); MEAN CORPUSCULAR HGB CONC 32.8 g/dl (33.0-37.0); MEAN PLATELET VOLUME 12.3 fl (9.6-12.3); MONO # 0.9 10*3/uL (0.1-1.0); MONO % 6.7 % (3.0-9.0); NEUT # 11.6 10*3/uL (2.3-7.9); NEUT % 82.4 % (47.0-73.0); PLATELET COUNT AUTOMATED 130 10*3/uL (130-400); RED BLOOD COUNT 4.49 10*6/uL (4.10-5.10); RED CELL DISTRI WIDTH 15.6 % (0-14.5); WHITE BLOOD COUNT 14.1 10*3/uL (4.8-10.8)
[2024-05-18] MEDS ORDERED: Piperacillin Sodium/Tazobact 0 ML IV SCH (08:35)
[2024-05-18] MEDS ORDERED: DEXTROSE 10 % IN WATER 250 ML IV PRN (08:40)
[2024-05-18] MEDS ORDERED: GABAPENTIN 300 MG CAP PO SCH (10:00)
[2024-05-18] MEDS ORDERED: ATORVASTATIN CALCIUM 40 MG TABLET PO SCH ×2 (10:00→18:00)
[2024-05-18] MEDS ORDERED: APIXABAN 5 MG TAB PO SCH (10:00)
[2024-05-18] MEDS ORDERED: Duloxetine Hydrochloride 30 MG CAP PO SCH (10:00)
[2024-05-18] MEDS ORDERED: METOPROLOL SUCCINATE XR 100 MG TAB PO SCH (10:00)
[2024-05-18] MEDS ORDERED: Piperacillin Sodium/Tazobact 2.25 GM in SODIUM CHLORIDE 0.9% 50 ML IV SCH (10:00)
[2024-05-18] MEDS ORDERED: EZETIMIBE 10 MG TAB PO SCH ×2 (10:00→18:00)
[2024-05-18] MEDS ORDERED: INSULIN LISPRO 1 UNIT/0.01 ML SQ SCH (11:30)
[2024-05-18 17:50] LABS: ABG O2 SATURATION 98.3 % (94.0-98.0); ARTERIAL BLOOD GAS PH 7.381 (7.350-7.450); ARTERIAL BLOOD GAS PO2 102.8 mmHg (83.0-108.0)
[2024-05-19] MEDS ORDERED: Vancomycin Hydrochloride 1,000 MG in SODIUM CHLORIDE 0.9% 250 ML IV SCH
== END 2024-05-18 22:21 | disposition short-term general hospital (02) | DRG 871 ==
LOC: ED 17:16 → EDHOLD 05-18 11:56
PROVIDERS: Emergency Medicine; Internal Medicine; ADMIT Internal Medicine; ATTEND Internal Medicine
PROC: 02HV33Z Insertion of Infusion Device into Superior Vena Cava, Percutaneous Approach (ICD-10-PCS; principal; 2024-05-17)
PROC: B548ZZA Ultrasonography of Superior Vena Cava, Guidance (ICD-10-PCS; 2024-05-17)
DX: A41.9 Sepsis, unspecified organism (principal); I21.4 Non-ST elevation (NSTEMI) myocardial infarction; I50.23 Acute on chronic systolic (congestive) heart failure; N17.9 Acute kidney failure, unspecified; L03.115 Cellulitis of right lower limb; I48.21 Permanent atrial fibrillation; J91.8 Pleural effusion in other conditions classified elsewhere; E87.1 Hypo-osmolality and hyponatremia; I13.0 Hypertensive heart and chronic kidney disease with heart failure and stage 1 through stage 4 chronic kidney disease, or unspecified chronic kidney disease; R06.03 Acute respiratory distress; R65.20 Severe sepsis without septic shock; I48.91 Unspecified atrial fibrillation; E78.2 Mixed hyperlipidemia; N18.9 Chronic kidney disease, unspecified; R73.9 Hyperglycemia, unspecified; D72.829 Elevated white blood cell count, unspecified; R29.717 NIHSS score 17; I25.10 Atherosclerotic heart disease of native coronary artery without angina pectoris; Z88.8 Allergy status to other drugs, medicaments and biological substances; Z79.899 Other long term (current) drug therapy; Z79.01 Long term (current) use of anticoagulants; Z90.710 Acquired absence of both cervix and uterus; Z98.41 Cataract extraction status, right eye; Z90.49 Acquired absence of other specified parts of digestive tract; Z83.3 Family history of diabetes mellitus

== ENCOUNTER 2024-06-06 14:17 | Emergency (ER) | payer OTHER, MEDICARE ==
[~2024-06-06] VITALS: Ht 152.4 cm; Wt 95.3 kg
[2024-06-06] MEDS ORDERED: [UNRECOGNIZED DRUG - OTHER] IM (14:37)
[2024-06-06] MEDS ORDERED: LASIX20 MG PO (14:39)
[2024-06-06] MEDS ORDERED: AMIODARONE HYD200 MG PO (14:41)
[2024-06-06] MEDS ORDERED: TYLENOL325 M2 PO (14:42)
== END 2024-06-06 14:46 | disposition home or self-care (01) ==
LOC: ED 14:17
DX: S09.90XA Unspecified injury of head, initial encounter (principal); I11.0 Hypertensive heart disease with heart failure; I50.9 Heart failure, unspecified; E11.9 Type 2 diabetes mellitus without complications; I48.91 Unspecified atrial fibrillation; E78.5 Hyperlipidemia, unspecified; Z88.5 Allergy status to narcotic agent; Z79.899 Other long term (current) drug therapy; Z79.84 Long term (current) use of oral hypoglycemic drugs; Z90.711 Acquired absence of uterus with remaining cervical stump; Z90.49 Acquired absence of other specified parts of digestive tract; W18.09XA Striking against other object with subsequent fall, initial encounter; Y93.89 Activity, other specified; Y92.89 Other specified places as the place of occurrence of the external cause; Y99.8 Other external cause status

== ENCOUNTER → 2024-06-11 | Outpatient (CLI) | payer OTHER, MEDICARE ==
[~2024-06-11] MED LIST changes: +AMIODARONE HYD200 MG PO; +LASIX20 MG PO; +TYLENOL325 M2 PO; +[UNRECOGNIZED DRUG - OTHER] IM
== END | disposition home or self-care (01) ==
LOC: WOUNDCARE 04:17
PROVIDERS: ATTEND Nurse Practitioner Family
DX: E11.621 Type 2 diabetes mellitus with foot ulcer (principal); I70.235 Atherosclerosis of native arteries of right leg with ulceration of other part of foot; L97.511 Non-pressure chronic ulcer of other part of right foot limited to breakdown of skin; I70.245 Atherosclerosis of native arteries of left leg with ulceration of other part of foot; L97.521 Non-pressure chronic ulcer of other part of left foot limited to breakdown of skin; L60.2 Onychogryphosis; E11.51 Type 2 diabetes mellitus with diabetic peripheral angiopathy without gangrene; I11.0 Hypertensive heart disease with heart failure; I50.9 Heart failure, unspecified; F17.290 Nicotine dependence, other tobacco product, uncomplicated; Z90.710 Acquired absence of both cervix and uterus; Z98.890 Other specified postprocedural states; Z79.4 Long term (current) use of insulin; Z79.899 Other long term (current) drug therapy

== ENCOUNTER → 2024-06-19 | Outpatient (CLI) | payer OTHER, MEDICARE | END | disposition home or self-care (01) | LOC: WOUNDCARE 01:02 | PROVIDERS: ATTEND Nurse Practitioner Family | DX: E11.621 Type 2 diabetes mellitus with foot ulcer (principal); L97.512 Non-pressure chronic ulcer of other part of right foot with fat layer exposed; L97.521 Non-pressure chronic ulcer of other part of left foot limited to breakdown of skin; E11.622 Type 2 diabetes mellitus with other skin ulcer; I70.245 Atherosclerosis of native arteries of left leg with ulceration of other part of foot; L97.821 Non-pressure chronic ulcer of other part of left lower leg limited to breakdown of skin; I70.234 Atherosclerosis of native arteries of right leg with ulceration of heel and midfoot; L97.411 Non-pressure chronic ulcer of right heel and midfoot limited to breakdown of skin; L60.2 Onychogryphosis; E11.51 Type 2 diabetes mellitus with diabetic peripheral angiopathy without gangrene; I11.0 Hypertensive heart disease with heart failure; I50.9 Heart failure, unspecified; F17.290 Nicotine dependence, other tobacco product, uncomplicated; Z90.49 Acquired absence of other specified parts of digestive tract; Z90.710 Acquired absence of both cervix and uterus; Z98.890 Other specified postprocedural states; Z79.4 Long term (current) use of insulin; Z79.899 Other long term (current) drug therapy ==

== ENCOUNTER → 2024-06-26 | Outpatient (CLI) | payer OTHER, MEDICARE | END | disposition home or self-care (01) | LOC: WOUNDCARE 01:27 | PROVIDERS: ATTEND Nurse Practitioner Family | DX: E11.621 Type 2 diabetes mellitus with foot ulcer (principal); I70.234 Atherosclerosis of native arteries of right leg with ulceration of heel and midfoot; L97.512 Non-pressure chronic ulcer of other part of right foot with fat layer exposed; I70.245 Atherosclerosis of native arteries of left leg with ulceration of other part of foot; L97.521 Non-pressure chronic ulcer of other part of left foot limited to breakdown of skin; R60.9 Edema, unspecified; I11.0 Hypertensive heart disease with heart failure; I50.9 Heart failure, unspecified; E11.51 Type 2 diabetes mellitus with diabetic peripheral angiopathy without gangrene; E11.65 Type 2 diabetes mellitus with hyperglycemia; L60.2 Onychogryphosis; F17.210 Nicotine dependence, cigarettes, uncomplicated; Z90.710 Acquired absence of both cervix and uterus; Z98.890 Other specified postprocedural states; Z79.4 Long term (current) use of insulin; Z79.899 Other long term (current) drug therapy ==

== ENCOUNTER → 2024-07-02 | Outpatient (CLI) | payer OTHER | END | disposition home or self-care (01) | LOC: WOUNDCARE 01:58 | PROVIDERS: ATTEND Nurse Practitioner Family | DX: E11.621 Type 2 diabetes mellitus with foot ulcer (principal); L97.512 Non-pressure chronic ulcer of other part of right foot with fat layer exposed; I70.25 Atherosclerosis of native arteries of other extremities with ulceration; E11.622 Type 2 diabetes mellitus with other skin ulcer; L98.491 Non-pressure chronic ulcer of skin of other sites limited to breakdown of skin; R60.9 Edema, unspecified; I70.234 Atherosclerosis of native arteries of right leg with ulceration of heel and midfoot; L97.811 Non-pressure chronic ulcer of other part of right lower leg limited to breakdown of skin; I70.245 Atherosclerosis of native arteries of left leg with ulceration of other part of foot; L97.521 Non-pressure chronic ulcer of other part of left foot limited to breakdown of skin; E11.51 Type 2 diabetes mellitus with diabetic peripheral angiopathy without gangrene; I11.0 Hypertensive heart disease with heart failure; I50.9 Heart failure, unspecified; L60.2 Onychogryphosis; F17.210 Nicotine dependence, cigarettes, uncomplicated; Z90.710 Acquired absence of both cervix and uterus; Z98.890 Other specified postprocedural states; Z79.4 Long term (current) use of insulin; Z79.899 Other long term (current) drug therapy ==

== ENCOUNTER → 2024-07-09 | Outpatient (CLI) | payer OTHER, MEDICARE | END | disposition home or self-care (01) | LOC: WOUNDCARE 01:54 | PROVIDERS: ATTEND Nurse Practitioner Family | DX: E11.621 Type 2 diabetes mellitus with foot ulcer (principal); I70.235 Atherosclerosis of native arteries of right leg with ulceration of other part of foot; L97.512 Non-pressure chronic ulcer of other part of right foot with fat layer exposed; I70.245 Atherosclerosis of native arteries of left leg with ulceration of other part of foot; L97.521 Non-pressure chronic ulcer of other part of left foot limited to breakdown of skin; E11.622 Type 2 diabetes mellitus with other skin ulcer; I70.234 Atherosclerosis of native arteries of right leg with ulceration of heel and midfoot; L97.411 Non-pressure chronic ulcer of right heel and midfoot limited to breakdown of skin; L98.491 Non-pressure chronic ulcer of skin of other sites limited to breakdown of skin; I70.25 Atherosclerosis of native arteries of other extremities with ulceration; E11.51 Type 2 diabetes mellitus with diabetic peripheral angiopathy without gangrene; E11.65 Type 2 diabetes mellitus with hyperglycemia; R60.9 Edema, unspecified; L84 Corns and callosities; L60.2 Onychogryphosis; I11.0 Hypertensive heart disease with heart failure; I50.9 Heart failure, unspecified; F17.210 Nicotine dependence, cigarettes, uncomplicated; Z90.710 Acquired absence of both cervix and uterus; Z98.890 Other specified postprocedural states; Z79.4 Long term (current) use of insulin; Z79.899 Other long term (current) drug therapy ==

== ENCOUNTER → 2024-07-16 | Outpatient (CLI) | payer OTHER, MEDICARE | END | disposition home or self-care (01) | LOC: WOUNDCARE 02:18 | PROVIDERS: ATTEND Nurse Practitioner Family | DX: E11.621 Type 2 diabetes mellitus with foot ulcer (principal); I70.234 Atherosclerosis of native arteries of right leg with ulceration of heel and midfoot; L97.512 Non-pressure chronic ulcer of other part of right foot with fat layer exposed; L97.411 Non-pressure chronic ulcer of right heel and midfoot limited to breakdown of skin; I70.245 Atherosclerosis of native arteries of left leg with ulceration of other part of foot; L97.821 Non-pressure chronic ulcer of other part of left lower leg limited to breakdown of skin; L98.492 Non-pressure chronic ulcer of skin of other sites with fat layer exposed; L60.2 Onychogryphosis; E11.51 Type 2 diabetes mellitus with diabetic peripheral angiopathy without gangrene; R60.9 Edema, unspecified; L84 Corns and callosities; I11.0 Hypertensive heart disease with heart failure; I50.9 Heart failure, unspecified; F17.210 Nicotine dependence, cigarettes, uncomplicated; Z90.49 Acquired absence of other specified parts of digestive tract; Z90.710 Acquired absence of both cervix and uterus; Z98.890 Other specified postprocedural states; Z79.899 Other long term (current) drug therapy ==

== ENCOUNTER → 2024-07-23 | Outpatient (CLI) | payer OTHER, MEDICARE | END | disposition home or self-care (01) | LOC: WOUNDCARE 01:51 | PROVIDERS: ATTEND Nurse Practitioner Family | DX: E11.621 Type 2 diabetes mellitus with foot ulcer (principal); L97.512 Non-pressure chronic ulcer of other part of right foot with fat layer exposed; E11.622 Type 2 diabetes mellitus with other skin ulcer; I70.245 Atherosclerosis of native arteries of left leg with ulceration of other part of foot; L97.521 Non-pressure chronic ulcer of other part of left foot limited to breakdown of skin; I70.234 Atherosclerosis of native arteries of right leg with ulceration of heel and midfoot; L97.411 Non-pressure chronic ulcer of right heel and midfoot limited to breakdown of skin; L60.2 Onychogryphosis; E11.65 Type 2 diabetes mellitus with hyperglycemia; E11.51 Type 2 diabetes mellitus with diabetic peripheral angiopathy without gangrene; I13.2 Hypertensive heart and chronic kidney disease with heart failure and with stage 5 chronic kidney disease, or end stage renal disease; E11.22 Type 2 diabetes mellitus with diabetic chronic kidney disease; N18.6 End stage renal disease; I50.9 Heart failure, unspecified; F17.210 Nicotine dependence, cigarettes, uncomplicated; Z90.49 Acquired absence of other specified parts of digestive tract; Z90.710 Acquired absence of both cervix and uterus; Z98.890 Other specified postprocedural states; Z79.4 Long term (current) use of insulin; Z79.899 Other long term (current) drug therapy ==

== ENCOUNTER 2024-07-26 14:16 | Emergency (ER) | payer OTHER, MEDICARE ==
[~2024-07-26] VITALS: Ht 154.9 cm; Wt 77.6 kg
[2024-07-26 14:48] VITALS: BP 124/80
[2024-07-26] MEDS ORDERED: MORPHINE Sulfate 2 MG/ML SYR IV ONE (14:55)
[2024-07-26] MEDS ORDERED: Ondansetron Hydrochloride 4 MG/2 ML VIAL IV ONE (14:55)
[2024-07-26] MEDS ORDERED: SODIUM CHLORIDE 0.9% 1,000 ML IV ONE (14:55)
[2024-07-26] MEDS ORDERED: Metoprolol Tartrate 5 MG/5 ML VIAL IV ONE ×2 (15:20→16:45)
[2024-07-26 15:28] LABS: BASO # 0.1 10*3/uL (0.0-0.1); BASO % 0.7 % (0.0-1.0); EOS # 0.1 10*3/uL (0.0-0.4); EOS % 0.7 % (1.0-4.0); HEMATOCRIT 48.8 % (37.0-47.0); MEAN CELL VOLUME 88.2 fl (81.0-99.0); MEAN CORPUSCULAR HGB 26.6 pg (27.0-31.0); MEAN CORPUSCULAR HGB CONC 30.1 g/dl (33.0-37.0); MEAN PLATELET VOLUME 9.9 fl (9.6-12.3); MONO # 0.9 10*3/uL (0.1-1.0); MONO % 8.4 % (3.0-9.0); NEUT # 8.1 10*3/uL (2.3-7.9); NEUT % 73.6 % (47.0-73.0); PLATELET COUNT AUTOMATED 245 10*3/uL (130-400); RED BLOOD COUNT 5.53 10*6/uL (4.10-5.10); RED CELL DISTRI WIDTH 16.4 % (0-14.5)
[2024-07-26 16:06] LABS: POTASSIUM 3.9 mmol/L (3.4-5.1)
== END 2024-07-26 19:32 | disposition home or self-care (01) ==
LOC: ED 14:16
PROVIDERS: Emergency Medicine
DX: I48.20 Chronic atrial fibrillation, unspecified (principal); R07.89 Other chest pain; I11.0 Hypertensive heart disease with heart failure; I50.9 Heart failure, unspecified; J44.9 Chronic obstructive pulmonary disease, unspecified; E78.5 Hyperlipidemia, unspecified; E11.9 Type 2 diabetes mellitus without complications; F41.9 Anxiety disorder, unspecified; E78.00 Pure hypercholesterolemia, unspecified; Z86.718 Personal history of other venous thrombosis and embolism; Z88.5 Allergy status to narcotic agent; Z90.710 Acquired absence of both cervix and uterus; Z90.49 Acquired absence of other specified parts of digestive tract; Z95.5 Presence of coronary angioplasty implant and graft; Z98.890 Other specified postprocedural states

== ENCOUNTER 2024-07-26 20:29 | Emergency (ER) | payer OTHER, MEDICARE ==
[~2024-07-26] VITALS: Ht 167.6 cm; Wt 72.6 kg
[2024-07-26 20:47] VITALS: BP 126/94
[2024-07-26 20:59] LABS: BASO # 0.1 10*3/uL (0.0-0.1); BASO % 0.5 % (0.0-1.0); EOS % 0.3 % (1.0-4.0); MEAN CELL VOLUME 87.5 fl (81.0-99.0); MEAN CORPUSCULAR HGB 26.8 pg (27.0-31.0); MEAN CORPUSCULAR HGB CONC 30.7 g/dl (33.0-37.0); MONO # 0.9 10*3/uL (0.1-1.0); NEUT # 10.6 10*3/uL (2.3-7.9); NEUT % 80.3 % (47.0-73.0); PLATELET COUNT AUTOMATED 241 10*3/uL (130-400); RED BLOOD COUNT 5.26 10*6/uL (4.10-5.10); RED CELL DISTRI WIDTH 15.9 % (0-14.5); WHITE BLOOD COUNT 13.2 10*3/uL (4.8-10.8)
[2024-07-26 21:20] LABS: POTASSIUM 4.2 mmol/L (3.4-5.1); TOTAL PROTEIN 6.8 gm/dL (6.0-8.0)
[2024-07-26] MEDS ORDERED: MG-AL HYDROXIDE/SIMETICONE 30 ML UDC PO STA (23:14)
[2024-07-26] MEDS ORDERED: Dicyclomine Hydrochloride 20 MG/10 ML OSYR PO STA (23:14)
[2024-07-26] MEDS ORDERED: Lidocaine Hydrochloride 15 ML UDC PO STA (23:14)
== END 2024-07-26 23:44 | disposition home or self-care (01) ==
LOC: ED 20:29
PROVIDERS: Internal Medicine
DX: K21.9 Gastro-esophageal reflux disease without esophagitis (principal); I48.91 Unspecified atrial fibrillation; D72.829 Elevated white blood cell count, unspecified; E11.65 Type 2 diabetes mellitus with hyperglycemia; F41.9 Anxiety disorder, unspecified; E78.00 Pure hypercholesterolemia, unspecified; I50.9 Heart failure, unspecified; E11.22 Type 2 diabetes mellitus with diabetic chronic kidney disease; N18.32 Chronic kidney disease, stage 3b; Z88.5 Allergy status to narcotic agent; Z90.49 Acquired absence of other specified parts of digestive tract; Z90.710 Acquired absence of both cervix and uterus; Z95.5 Presence of coronary angioplasty implant and graft; Z98.890 Other specified postprocedural states; Z86.718 Personal history of other venous thrombosis and embolism

== ENCOUNTER → 2024-07-30 | Outpatient (CLI) | payer OTHER, MEDICARE ==
[~2024-07-30] MED LIST changes: +LANTUS100 UNIT/1 SC; +PROTONIX40 MG PO; +TOPROL XL50 M1 PO
== END | disposition home or self-care (01) ==
LOC: WOUNDCARE 00:29
PROVIDERS: ATTEND Nurse Practitioner Family
DX: E11.621 Type 2 diabetes mellitus with foot ulcer (principal); I70.234 Atherosclerosis of native arteries of right leg with ulceration of heel and midfoot; L97.512 Non-pressure chronic ulcer of other part of right foot with fat layer exposed; L97.421 Non-pressure chronic ulcer of left heel and midfoot limited to breakdown of skin; I70.245 Atherosclerosis of native arteries of left leg with ulceration of other part of foot; L97.521 Non-pressure chronic ulcer of other part of left foot limited to breakdown of skin; R60.9 Edema, unspecified; I11.0 Hypertensive heart disease with heart failure; I50.9 Heart failure, unspecified; E11.51 Type 2 diabetes mellitus with diabetic peripheral angiopathy without gangrene; F17.210 Nicotine dependence, cigarettes, uncomplicated; Z90.710 Acquired absence of both cervix and uterus; Z98.890 Other specified postprocedural states; Z79.4 Long term (current) use of insulin; Z79.899 Other long term (current) drug therapy

== ENCOUNTER 2024-08-04 13:45 | Inpatient (IN) | payer OTHER, MEDICARE ==
[~2024-08-04] VITALS: Ht 155 cm; Wt 68.0 kg
[~2024-08-04 13:45] MED LIST changes: -LANTUS100 UNIT/1 SC; -PROTONIX40 MG PO; -TOPROL XL50 M1 PO
[2024-08-04 14:34] VITALS: BP 111/90
[2024-08-04 15:14] VITALS: BP 111/90
[2024-08-04] MEDS ORDERED: TOPROL XL50 M1 PO (15:50)
[2024-08-04] MEDS ORDERED: ACETAMINOPHEN 325 MG TAB PO PRN (15:50)
[2024-08-04] MEDS ORDERED: AMIODARONE HYD200 MG PO (15:50)
[2024-08-04] MEDS ORDERED: GLIMEPIRIDE4 M1 PO (15:51)
[2024-08-04] MEDS ORDERED: PROTONIX40 MG PO (15:51)
[2024-08-04] MEDS ORDERED: LANTUS100 UNIT/1 SC (15:54)
[2024-08-04 16:00] VITALS: BP 111/90
[2024-08-04] MEDS ORDERED: DEXTROSE 10 % IN WATER 250 ML IV PRN (16:20)
[2024-08-04 16:22] LABS: BASO # 0.1 10*3/uL (0.0-0.1); BASO % 0.6 % (0.0-1.0); EOS % 0.2 % (1.0-4.0); MEAN CORPUSCULAR HGB CONC 30.6 g/dl (33.0-37.0); MEAN PLATELET VOLUME 9.4 fl (9.6-12.3); MONO # 0.8 10*3/uL (0.1-1.0); NEUT # 7.2 10*3/uL (2.3-7.9); NEUT % 72.6 % (47.0-73.0); PLATELET COUNT AUTOMATED 273 10*3/uL (130-400); RED BLOOD COUNT 5.53 10*6/uL (4.10-5.10); RED CELL DISTRI WIDTH 15.6 % (0-14.5)
[2024-08-04] MEDS ORDERED: INSULIN REGULAR, HUMAN 1 UNIT/0.01 ML SC SCH (16:30)
[2024-08-04] MEDS ORDERED: GLIMEPIRIDE 2 MG TAB PO SCH (16:30)
[2024-08-04 16:47] LABS: POTASSIUM 4.2 mmol/L (3.4-5.1)
[2024-08-04] MEDS ORDERED: SODIUM CHLORIDE 0.9% 1,000 ML IV SCH (17:00)
[2024-08-04] MEDS ORDERED: Insulin Glargine, Recombinan 1 UNIT/0.01 ML SC SCH (17:00)
[2024-08-04] MEDS ORDERED: Lactobacillus Acidophilus/LA 1 TAB TAB PO SCH (18:00)
[2024-08-04 20:00] VITALS: BP 100/81
[2024-08-04] MEDS ORDERED: NA FERRIC GLUC CMPL/SUCROSE 62.5 MG/5 ML VIAL IV SCH (21:08)
[2024-08-04] MEDS ORDERED: Amiodarone Hydrochloride 200 MG TAB PO SCH (22:00)
[2024-08-04] MEDS ORDERED: RIFAXIMIN 550 MG TAB PO SCH (22:00)
[2024-08-04] MEDS ORDERED: APIXABAN 5 MG TAB PO SCH (22:00)
[2024-08-04] MEDS ORDERED: GABAPENTIN 300 MG CAP PO SCH (22:00)
[2024-08-05] VITALS: BP 113/77
[2024-08-05 04:00] VITALS: BP 113/77
[2024-08-05] MEDS ORDERED: Pantoprazole Sodium 40 MG TAB PO SCH (07:30)
[2024-08-05 08:00] VITALS: BP 118/73
[2024-08-05] MEDS ORDERED: METOPROLOL SUCCINATE XR 50 MG TAB PO SCH (10:00)
[2024-08-05] MEDS ORDERED: ATORVASTATIN CALCIUM 40 MG TABLET PO SCH (10:00)
[2024-08-05] MEDS ORDERED: DULoxetine Hydrochloride 30 MG CAP PO SCH (10:00)
[2024-08-05] MEDS ORDERED: LINAGLIPTIN 5 MG TAB PO SCH (10:00)
[2024-08-05] MEDS ORDERED: EZETIMIBE 10 MG TAB PO SCH (10:00)
[2024-08-05 12:00] VITALS: BP 118/51
[2024-08-05] MEDS ORDERED: LEPTOSPERMUM HONEY 4 X 5 INCH WOUND DRESSING T ONE (12:06)
[2024-08-05] MEDS ORDERED: FOAM BANDAGE 5X5 T ONE (12:06)
[2024-08-05 12:44] LABS: URINE CHLORIDE, RANDOM < 20 mmol/L
[2024-08-05 16:00] VITALS: BP 133/79
[2024-08-05] MEDS ORDERED: INSULIN REGULAR, HUMAN 1 UNIT/0.01 ML SC SCH (16:30)
[2024-08-05 20:00] VITALS: BP 122/62; BP 128/81
[2024-08-06] VITALS: BP 113/80; BP 118/62
[2024-08-06 04:00] VITALS: BP 118/62
[2024-08-06 07:58] VITALS: BP 125/86
[2024-08-06] MEDS ORDERED: DEXTROSE 10 % IN WATER 250 ML IV PRN (08:40)
[2024-08-06] MEDS ORDERED: INSULIN REGULAR, HUMAN 1 UNIT/0.01 ML SC SCH (11:30)
[2024-08-06 12:00] VITALS: BP 118/74
[2024-08-06] MEDS ORDERED: IOHEXOL 300 MG/ML 100 ML VIAL IV ONE (13:00)
[2024-08-06 16:00] VITALS: BP 110/65
[2024-08-06 20:00] VITALS: BP 107/62; BP 114/22
[2024-08-07] VITALS: BP 114/67; BP 115/62
[2024-08-07 04:00] VITALS: BP 117/66
[2024-08-07 06:33] LABS: BASO # 0.1 10*3/uL (0.0-0.1); BASO % 0.8 % (0.0-1.0); EOS # 0.1 10*3/uL (0.0-0.4); EOS % 0.6 % (1.0-4.0); HEMATOCRIT 46.8 % (37.0-47.0); MEAN CELL VOLUME 89.7 fl (81.0-99.0); MEAN CORPUSCULAR HGB 26.2 pg (27.0-31.0); MEAN CORPUSCULAR HGB CONC 29.3 g/dl (33.0-37.0); MEAN PLATELET VOLUME 10.7 fl (9.6-12.3); MONO # 0.7 10*3/uL (0.1-1.0); MONO % 6.9 % (3.0-9.0); NEUT # 8.3 10*3/uL (2.3-7.9); NEUT % 78.6 % (47.0-73.0); PLATELET COUNT AUTOMATED 249 10*3/uL (130-400); RED BLOOD COUNT 5.22 10*6/uL (4.10-5.10); RED CELL DISTRI WIDTH 15.9 % (0-14.5); WHITE BLOOD COUNT 10.5 10*3/uL (4.8-10.8)
[2024-08-07 06:39] LABS: ALKALINE PHOSPHATASE 68 U/L (46-116); BUN 13 mg/dl (9-23); CHLORIDE 109 mmol/L (98-107); POTASSIUM 4.1 mmol/L (3.4-5.1); SGPT/ALT 9 U/L (5-49)
[2024-08-07 08:00] VITALS: BP 125/67
[2024-08-07] MEDS ORDERED: AMIODARONE HYD200 MG PO (08:17)
[2024-08-07] MEDS ORDERED: TOPROL XL50 M1 PO ×2 (08:17→08:18)
[2024-08-07] MEDS ORDERED: FERROUS SULFAT325 MG PO (08:17)
[2024-08-07] MEDS ORDERED: XIFAXAN550 MG PO (08:17)
== END 2024-08-07 09:37 | disposition home health service (06) | DRG 308 ==
LOC: 5E 13:45
PROVIDERS: ADMIT Internal Medicine; ATTEND Internal Medicine
DX: I48.21 Permanent atrial fibrillation (principal); E11.00 Type 2 diabetes mellitus with hyperosmolarity without nonketotic hyperglycemic-hyperosmolar coma (NKHHC); E87.1 Hypo-osmolality and hyponatremia; J96.10 Chronic respiratory failure, unspecified whether with hypoxia or hypercapnia; I50.22 Chronic systolic (congestive) heart failure; N17.9 Acute kidney failure, unspecified; I13.0 Hypertensive heart and chronic kidney disease with heart failure and stage 1 through stage 4 chronic kidney disease, or unspecified chronic kidney disease; K92.2 Gastrointestinal hemorrhage, unspecified; I42.9 Cardiomyopathy, unspecified; J44.9 Chronic obstructive pulmonary disease, unspecified; D50.9 Iron deficiency anemia, unspecified; E78.5 Hyperlipidemia, unspecified; F17.210 Nicotine dependence, cigarettes, uncomplicated; G89.29 Other chronic pain; M54.9 Dorsalgia, unspecified; E11.42 Type 2 diabetes mellitus with diabetic polyneuropathy; N18.32 Chronic kidney disease, stage 3b; E66.9 Obesity, unspecified; E11.621 Type 2 diabetes mellitus with foot ulcer; L97.519 Non-pressure chronic ulcer of other part of right foot with unspecified severity; K21.9 Gastro-esophageal reflux disease without esophagitis; Z88.8 Allergy status to other drugs, medicaments and biological substances; Z79.899 Other long term (current) drug therapy; Z79.01 Long term (current) use of anticoagulants; Z79.2 Long term (current) use of antibiotics; I25.2 Old myocardial infarction; Z68.28 Body mass index [BMI] 28.0-28.9, adult

== ENCOUNTER → 2024-08-13 | Outpatient (CLI) | payer OTHER, MEDICARE ==
[~2024-08-13] MED LIST changes: +FERROUS SULFAT325 MG PO; +LANTUS100 UNIT/1 SC; +PROTONIX40 MG PO; +TOPROL XL50 M1 PO
== END | disposition home or self-care (01) ==
LOC: WOUNDCARE 02:43
PROVIDERS: ATTEND Nurse Practitioner Family
DX: E11.621 Type 2 diabetes mellitus with foot ulcer (principal); L97.512 Non-pressure chronic ulcer of other part of right foot with fat layer exposed; I70.234 Atherosclerosis of native arteries of right leg with ulceration of heel and midfoot; L97.411 Non-pressure chronic ulcer of right heel and midfoot limited to breakdown of skin; I70.245 Atherosclerosis of native arteries of left leg with ulceration of other part of foot; L97.521 Non-pressure chronic ulcer of other part of left foot limited to breakdown of skin; L60.2 Onychogryphosis; E11.51 Type 2 diabetes mellitus with diabetic peripheral angiopathy without gangrene; E11.65 Type 2 diabetes mellitus with hyperglycemia; I11.0 Hypertensive heart disease with heart failure; I50.9 Heart failure, unspecified; F17.210 Nicotine dependence, cigarettes, uncomplicated; Z90.710 Acquired absence of both cervix and uterus; Z90.49 Acquired absence of other specified parts of digestive tract; Z98.890 Other specified postprocedural states; Z79.899 Other long term (current) drug therapy

== ENCOUNTER → 2024-08-20 | Outpatient (CLI) | payer OTHER, MEDICARE | END | disposition home or self-care (01) | LOC: WOUNDCARE 02:10 | PROVIDERS: ATTEND Nurse Practitioner Family | DX: E11.621 Type 2 diabetes mellitus with foot ulcer (principal); L97.518 Non-pressure chronic ulcer of other part of right foot with other specified severity; I70.234 Atherosclerosis of native arteries of right leg with ulceration of heel and midfoot; L97.411 Non-pressure chronic ulcer of right heel and midfoot limited to breakdown of skin; I70.245 Atherosclerosis of native arteries of left leg with ulceration of other part of foot; L97.521 Non-pressure chronic ulcer of other part of left foot limited to breakdown of skin; E11.51 Type 2 diabetes mellitus with diabetic peripheral angiopathy without gangrene; I11.0 Hypertensive heart disease with heart failure; I50.9 Heart failure, unspecified; L60.2 Onychogryphosis; F17.210 Nicotine dependence, cigarettes, uncomplicated; Z90.710 Acquired absence of both cervix and uterus; Z98.890 Other specified postprocedural states; Z79.4 Long term (current) use of insulin; Z79.899 Other long term (current) drug therapy ==

== ENCOUNTER 2024-09-01 15:50 | Inpatient (IN) | payer OTHER, MEDICARE ==
[~2024-09-01] VITALS: Ht 154.9 cm; Wt 72.6 kg
[~2024-09-01 15:50] MED LIST changes: +TRAD5TAB1 PO
[2024-09-01 16:08] VITALS: BP 127/91
[2024-09-01 16:50] LABS: BASO # 0.1 10*3/uL (0.0-0.1); BASO % 0.8 % (0.0-1.0); EOS # 0.1 10*3/uL (0.0-0.4); EOS % 0.9 % (1.0-4.0); MEAN CELL VOLUME 91.1 fl (81.0-99.0); MEAN CORPUSCULAR HGB 27.7 pg (27.0-31.0); MEAN CORPUSCULAR HGB CONC 30.4 g/dl (33.0-37.0); MEAN PLATELET VOLUME 11.2 fl (9.6-12.3); MONO # 0.6 10*3/uL (0.1-1.0); MONO % 8.1 % (3.0-9.0); NEUT # 5.2 10*3/uL (2.3-7.9); NEUT % 67.9 % (47.0-73.0); PLATELET COUNT AUTOMATED 269 10*3/uL (130-400); RED BLOOD COUNT 5.05 10*6/uL (4.10-5.10); WHITE BLOOD COUNT 7.7 10*3/uL (4.8-10.8)
[2024-09-01 17:46] LABS: ACT PARTIAL THROMBO TIME 27.9 SECONDS (20.0-32.1)
[2024-09-01 17:57] LABS: ALKALINE PHOSPHATASE 95 U/L (46-116); BUN 13 mg/dl (9-23); CHLORIDE 104 mmol/L (98-107); POTASSIUM 3.9 mmol/L (3.4-5.1); SGPT/ALT 9 U/L (5-49); TOTAL PROTEIN 6.6 gm/dL (6.0-8.0)
[2024-09-01] MEDS ORDERED: FUROSEMIDE 40 MG/4 ML VIAL IV ONE (18:40)
[2024-09-01] MEDS ORDERED: dilTIAZem Hydrochloride 25 MG/5 ML VIAL IV ONE ×3 (20:50→21:30)
[2024-09-01] MEDS ORDERED: BUMETANIDE 1 MG/4 ML VIAL IV ONE (20:50)
[2024-09-01 20:55] VITALS: BP 117/54
[2024-09-01 21:05] VITALS: BP 118/94
[2024-09-01 21:15] VITALS: BP 126/83
[2024-09-01 21:25] VITALS: BP 124/68
[2024-09-01 23:00] VITALS: BP 118/71
[2024-09-02 00:30] VITALS: BP 123/82
[2024-09-02 04:30] VITALS: BP 121/77
[2024-09-02] MEDS ORDERED: Pantoprazole Sodium 40 MG TAB PO SCH (07:37)
[2024-09-02] MEDS ORDERED: GLIMEPIRIDE 2 MG TAB PO SCH (07:38)
[2024-09-02 08:00] VITALS: BP 123/81
[2024-09-02] MEDS ORDERED: TOPROL XL50 M1 PO (08:05)
[2024-09-02] MEDS ORDERED: APIXABAN 5 MG TAB PO SCH (10:00)
[2024-09-02] MEDS ORDERED: METOPROLOL SUCCINATE XR 100 MG TAB PO SCH (10:00)
[2024-09-02] MEDS ORDERED: EZETIMIBE 10 MG TAB PO SCH (10:00)
[2024-09-02] MEDS ORDERED: Insulin Glargine, Recombinan 1 UNIT/0.01 ML SC SCH (10:00)
[2024-09-02] MEDS ORDERED: Lactobacillus Acidophilus/LA 1 TAB TAB PO SCH (10:00)
[2024-09-02] MEDS ORDERED: GABAPENTIN 300 MG CAP PO SCH (10:00)
[2024-09-02] MEDS ORDERED: ATORVASTATIN CALCIUM 40 MG TABLET PO SCH (10:00)
[2024-09-02] MEDS ORDERED: LINAGLIPTIN 5 MG TAB PO SCH (10:00)
[2024-09-02] MEDS ORDERED: FERROUS SULFATE 325 MG TAB PO SCH (10:00)
[2024-09-02] MEDS ORDERED: DULoxetine Hydrochloride 30 MG CAP PO SCH (10:00)
== END 2024-09-02 13:56 | disposition home or self-care (01) | DRG 291 ==
LOC: ED 15:50 → EDHOLD 22:16
PROVIDERS: Internal Medicine; ADMIT Internal Medicine; ATTEND Internal Medicine
DX: I11.0 Hypertensive heart disease with heart failure (principal); I50.23 Acute on chronic systolic (congestive) heart failure; E44.1 Mild protein-calorie malnutrition; I48.91 Unspecified atrial fibrillation; J44.9 Chronic obstructive pulmonary disease, unspecified; G89.29 Other chronic pain; M54.50 Low back pain, unspecified; E11.42 Type 2 diabetes mellitus with diabetic polyneuropathy; Z88.5 Allergy status to narcotic agent; Z79.899 Other long term (current) drug therapy; Z68.30 Body mass index [BMI] 30.0-30.9, adult; I25.2 Old myocardial infarction; Z79.4 Long term (current) use of insulin

== ENCOUNTER 2024-10-11 09:45 | Inpatient (IN) | payer OTHER, MEDICARE ==
[~2024-10-11] VITALS: Ht 160 cm; Wt 93.0 kg
[2024-10-11] VITALS (18 sets, daily range): BP systolic 81–132; BP diastolic 36–83
[2024-10-11] MEDS ORDERED: methylPREDNISolone sod succ 125 MG VIAL IV ONE (10:00)
[2024-10-11] MEDS ORDERED: SODIUM CHLORIDE 0.9% 1,000 ML IV SCH ×2 (10:00→14:55)
[2024-10-11] MEDS ORDERED: Albuterol Sulf/Ipratropium 3 ML VIAL NEB ONE (10:00)
[2024-10-11 10:25] LABS: BASO % 0.2 % (0.0-1.0); EOS % 0.1 % (1.0-4.0); HEMATOCRIT 46.8 % (37.0-47.0); MEAN CELL VOLUME 94.5 fl (81.0-99.0); MEAN CORPUSCULAR HGB 29.3 pg (27.0-31.0); MEAN PLATELET VOLUME 10.5 fl (9.6-12.3); MONO # 1.1 10*3/uL (0.1-1.0); MONO % 6.3 % (3.0-9.0); NEUT # 15.5 10*3/uL (2.3-7.9); NEUT % 89.1 % (47.0-73.0); PLATELET COUNT AUTOMATED 195 10*3/uL (130-400); RED BLOOD COUNT 4.95 10*6/uL (4.10-5.10); RED CELL DISTRI WIDTH 19.4 % (0-14.5); WHITE BLOOD COUNT 17.4 10*3/uL (4.8-10.8)
[2024-10-11 10:33] LABS: ACT PARTIAL THROMBO TIME 28.2 SECONDS (20.0-32.1)
[2024-10-11 10:37] LABS: ABG BASE EXCESS 1.3 mmol/L (-2.0-3.0); ABG O2 SATURATION 90.7 % (94.0-98.0); ARTERIAL BLOOD GAS PH 7.412 (7.350-7.450); ARTERIAL BLOOD GAS PO2 63.2 mmHg (83.0-108.0)
[2024-10-11 10:41] LABS: POTASSIUM 4.5 mmol/L (3.4-5.1); TOTAL PROTEIN 6.8 gm/dL (6.0-8.0)
[2024-10-11] MEDS ORDERED: cefTRIAXone Sodium 1 GM/10 ML SYR IV ONE (11:10)
[2024-10-11] MEDS ORDERED: AZITHROMYCIN 250 ML IV ONE (11:10)
[2024-10-11] MEDS ORDERED: ACETAMINOPHEN 325 MG TAB PO PRN (14:55)
[2024-10-11] MEDS ORDERED: Ondansetron Hydrochloride 4 MG/2 ML VIAL IV PRN (15:00)
[2024-10-11] MEDS ORDERED: LORazepam 2 MG/ML VIAL IV ONE (17:10)
[2024-10-11] MEDS ORDERED: Piperacillin Sodium/Tazobact 50 ML IV SCH (18:00)
[2024-10-11] MEDS ORDERED: PROPOFOL 50 ML IV SCH (18:15)
[2024-10-11] MEDS ORDERED: PROPOFOL 50 ML IV ONE (18:40)
[2024-10-11 21:30] LABS: ABG O2 SATURATION 93.5 % (94.0-98.0); ARTERIAL BLOOD GAS PO2 95.2 mmHg (83.0-108.0)
[2024-10-11 21:36] LABS: ARTERIAL BLOOD GAS PH 7.097 (7.350-7.450)
[2024-10-11] MEDS ORDERED: Water, Sterile 10 ML VIAL ONE (21:36)
[2024-10-11 21:37] LABS: ABG BASE EXCESS -9.3 mmol/L (-2.0-3.0)
[2024-10-11] MEDS ORDERED: SODIUM BICARBONATE 50 MEQ/50 ML VIAL IV ONE ×2 (21:55)
[2024-10-11] MEDS ORDERED: Amiodarone Hydrochloride 200 MG TAB PO SCH (22:00)
[2024-10-11] MEDS ORDERED: APIXABAN 5 MG TAB PO SCH (22:00)
[2024-10-11] MEDS ORDERED: methylPREDNISolone sod succ 40 MG VIAL IV SCH (22:00)
[2024-10-11] MEDS ORDERED: ETOMIDATE 20 MG/10 ML VIAL IV ONE (22:02)
[2024-10-11] MEDS ORDERED: ROCURONIUM BROMIDE 50 MG/5 ML SYRINGE IV ONE (22:02)
[2024-10-11 22:44] LABS: ABG BASE EXCESS -1.6 mmol/L (-2.0-3.0); ABG O2 SATURATION 99.3 % (94.0-98.0); ARTERIAL BLOOD GAS PH 7.33 (7.350-7.450); ARTERIAL BLOOD GAS PO2 165.7 mmHg (83.0-108.0)
[2024-10-11] MEDS ORDERED: NOREPINEPHRINE BITARTRATE/D5W 250 ML IV SCH (22:55)
[2024-10-11] MEDS ORDERED: SODIUM BICARBONATE 50 MEQ in DEXTROSE 5% 1,000 ML IV SCH (23:00)
[2024-10-12] VITALS (92 sets, daily range): BP systolic 81–147; BP diastolic 30–89
[2024-10-12 04:44] LABS: HEMATOCRIT 41.4 % (37.0-47.0); MEAN CELL VOLUME 94.1 fl (81.0-99.0); MEAN CORPUSCULAR HGB 28.9 pg (27.0-31.0); MEAN CORPUSCULAR HGB CONC 30.7 g/dl (33.0-37.0); MEAN PLATELET VOLUME 10.6 fl (9.6-12.3); PLATELET COUNT AUTOMATED 175 10*3/uL (130-400); WHITE BLOOD COUNT 15.8 10*3/uL (4.8-10.8)
[2024-10-12 04:46] LABS: MANUAL DIFF REFLEX YES
[2024-10-12 05:03] LABS: POTASSIUM 4.6 mmol/L (3.4-5.1)
[2024-10-12 05:04] LABS: PLATELET SUFFICIENCY NORMAL (NORMAL); TOTAL CELLS COUNTED 100 #CELLS
[2024-10-12 07:48] LABS: ABG BASE EXCESS 1.1 mmol/L (-2.0-3.0); ABG O2 SATURATION 94.8 % (94.0-98.0); ARTERIAL BLOOD GAS PH 7.378 (7.350-7.450); ARTERIAL BLOOD GAS PO2 85.3 mmHg (83.0-108.0)
[2024-10-12] MEDS ORDERED: HYDROmorphONE Hydrochloride 0.5 MG/0.5 ML SYRINGE IV PRN (08:15)
[2024-10-12] MEDS ORDERED: DEXTROSE 10 % IN WATER 250 ML IV PRN (08:50)
[2024-10-12 09:18] LABS: BILIRUBIN 2+ (Negative); BLOOD 3+ (Negative); CLARITY Turbid (Clear); COLOR Dark Yellow (Yellow); GLUCOSE Trace (Negative); KETONE Negative (Negative); LEUKO ESTERASE 1+ (Negative); NITRITE Negative (Negative); SPECIFIC GRAVITY 1.025 (1.001-1.030)
[2024-10-12 09:24] LABS: RBC TNTC rbc/hpf (0-2)
[2024-10-12 09:30] LABS: BACTERIA 4+
[2024-10-12] MEDS ORDERED: LINAGLIPTIN 5 MG TAB PO SCH (10:00)
[2024-10-12] MEDS ORDERED: EZETIMIBE 10 MG TAB PO SCH (10:00)
[2024-10-12] MEDS ORDERED: ATORVASTATIN CALCIUM 40 MG TABLET PO SCH (10:00)
[2024-10-12] MEDS ORDERED: DULoxetine Hydrochloride 30 MG CAP PO SCH (10:00)
[2024-10-12] MEDS ORDERED: BUMETANIDE 2.5 MG/10 ML VIAL IV SCH (10:00)
[2024-10-12] MEDS ORDERED: Pantoprazole Sodium 40 MG TAB PO SCH (10:00)
[2024-10-12] MEDS ORDERED: INSULIN REGULAR, HUMAN 1 UNIT/0.01 ML SC SCH (11:30)
[2024-10-12] MEDS ORDERED: SODIUM CHLORIDE 0.9% 1,000 ML IV ONE (15:30)
[2024-10-12] MEDS ORDERED: Hydrocortisone Sodium Succin 100 MG/2 ML VIAL IV SCH (16:00)
[2024-10-12] MEDS ORDERED: PROPOFOL 100 ML IV SCH (18:55)
[2024-10-12] MEDS ORDERED: PROPOFOL 100 ML IV ONE (19:03)
[2024-10-13] VITALS (87 sets, daily range): BP systolic 78–123; BP diastolic 46–84
[2024-10-13 05:04] LABS: POTASSIUM 3.7 mmol/L (3.4-5.1)
[2024-10-13 06:03] LABS: HEMATOCRIT 41.1 % (37.0-47.0); MEAN CORPUSCULAR HGB 28.7 pg (27.0-31.0); MEAN CORPUSCULAR HGB CONC 31.9 g/dl (33.0-37.0); NUCLEATED RED BLOOD CELL 0.1 % (0.0-0.0); PLATELET COUNT AUTOMATED 189 10*3/uL (130-400); RED BLOOD COUNT 4.56 10*6/uL (4.10-5.10); RED CELL DISTRI WIDTH 19.1 % (0-14.5); WHITE BLOOD COUNT 19.8 10*3/uL (4.8-10.8)
[2024-10-13 06:15] LABS: MEAN CELL VOLUME 90.1 fl (81.0-99.0)
[2024-10-13 06:16] LABS: MANUAL DIFF REFLEX YES
[2024-10-13 07:09] LABS: TOTAL CELLS COUNTED 100 #CELLS
[2024-10-13 07:10] LABS: BURR CELLS MODERATE; PLATELET SUFFICIENCY NORMAL (NORMAL)
[2024-10-13] MEDS ORDERED: VANCOMYCIN HCL 1,250 MG in SODIUM CHLORIDE 0.9% 250 ML IV SCH (08:00)
[2024-10-13 08:20] LABS: ABG BASE EXCESS 6.4 mmol/L (-2.0-3.0); ABG O2 SATURATION 95.6 % (94.0-98.0); ARTERIAL BLOOD GAS PH 7.477 (7.350-7.450); ARTERIAL BLOOD GAS PO2 73.9 mmHg (83.0-108.0)
[2024-10-13] MEDS ORDERED: FUROSEMIDE 40 MG/4 ML VIAL IV ONE (10:45)
[2024-10-13] MEDS ORDERED: ALBUMIN 25% 100 ML IV ONE (10:45)
[2024-10-13] MEDS ORDERED: NYSTATIN 15 GM BOT T SCH (12:10)
[2024-10-13 15:36] LABS: POTASSIUM 3.2 mmol/L (3.4-5.1)
[2024-10-13] MEDS ORDERED: Hydrocortisone Sodium Succin 100 MG/2 ML VIAL IV SCH (16:41)
[2024-10-13] MEDS ORDERED: POTASSIUM CHLORIDE 20 MEQ TAB PO ONE (17:05)
[2024-10-13 18:07] LABS: MYCOPLASMA PNEUMONIAE IGG 124 U/mL (0-99); MYCOPLASMA PNEUMONIAE IGM <770 U/mL (0-769)
[2024-10-13] MEDS ORDERED: dilTIAZem Hydrochloride 100 ML IV SCH (19:00)
[2024-10-13 20:43] LABS: ABG O2 SATURATION 89.8 % (94.0-98.0); ARTERIAL BLOOD GAS PH 7.42 (7.350-7.450); ARTERIAL BLOOD GAS PO2 59.5 mmHg (83.0-108.0)
[2024-10-13 20:44] LABS: ABG BASE EXCESS 6.6 mmol/L (-2.0-3.0)
[2024-10-13] MEDS ORDERED: POTASSIUM CHLORIDE 20 MEQ TAB PO SCH (21:00)
[2024-10-14] VITALS (62 sets, daily range): BP systolic 80–132; BP diastolic 41–75
[2024-10-14 06:27] LABS: POTASSIUM 3.8 mmol/L (3.4-5.1); TOTAL PROTEIN 5.2 gm/dL (6.0-8.0)
[2024-10-14 06:29] LABS: HEMATOCRIT 40.9 % (37.0-47.0); MEAN CELL VOLUME 92.1 fl (81.0-99.0); MEAN CORPUSCULAR HGB 28.6 pg (27.0-31.0); MEAN CORPUSCULAR HGB CONC 31.1 g/dl (33.0-37.0); MEAN PLATELET VOLUME 10.8 fl (9.6-12.3); PLATELET COUNT AUTOMATED 168 10*3/uL (130-400); RED BLOOD COUNT 4.44 10*6/uL (4.10-5.10); RED CELL DISTRI WIDTH 19.4 % (0-14.5); WHITE BLOOD COUNT 18.4 10*3/uL (4.8-10.8)
[2024-10-14 06:30] LABS: MANUAL DIFF REFLEX YES
[2024-10-14 06:59] LABS: TOTAL CELLS COUNTED 100 #CELLS
[2024-10-14 07:00] LABS: BURR CELLS FEW; OVALOCYTES FEW; PLATELET SUFFICIENCY NORMAL (NORMAL); POLYCHROMASIA SLIGHT; ROULEAUX SLIGHT; TARGET CELLS FEW; TOXIC GRANULATION SLIGHT; VACUOLATION OF NEUTROPHILS SLIGHT
[2024-10-14 07:44] LABS: ABG O2 SATURATION 88.3 % (94.0-98.0); ARTERIAL BLOOD GAS PH 7.411 (7.350-7.450); ARTERIAL BLOOD GAS PO2 57.7 mmHg (83.0-108.0)
[2024-10-14 07:45] LABS: ABG BASE EXCESS 7.3 mmol/L (-2.0-3.0)
[2024-10-14] MEDS ORDERED: POTASSIUM CHLORIDE 20 MEQ TAB PO SCH (10:00)
[2024-10-14] MEDS ORDERED: FUROSEMIDE 40 MG/4 ML VIAL IV SCH (10:00)
[2024-10-14] MEDS ORDERED: METOPROLOL SUCCINATE XR 100 MG TAB PO SCH (10:00)
[2024-10-14] MEDS ORDERED: Metoprolol Tartrate 25 MG TAB PO SCH (12:00)
[2024-10-15] VITALS (11 sets, daily range): BP systolic 88–125; BP diastolic 54–83
[2024-10-15] MEDS ORDERED: Hydrocortisone Sodium Succin 250 MG/2 ML VIAL IV SCH ×2 (06:00→14:00)
[2024-10-15 07:36] LABS: HEMATOCRIT 38.8 % (37.0-47.0); MEAN CELL VOLUME 91.5 fl (81.0-99.0); MEAN CORPUSCULAR HGB 28.5 pg (27.0-31.0); MEAN CORPUSCULAR HGB CONC 31.2 g/dl (33.0-37.0); MEAN PLATELET VOLUME 10.7 fl (9.6-12.3); PLATELET COUNT AUTOMATED 125 10*3/uL (130-400); RED BLOOD COUNT 4.24 10*6/uL (4.10-5.10); RED CELL DISTRI WIDTH 19.1 % (0-14.5); WHITE BLOOD COUNT 13.5 10*3/uL (4.8-10.8)
[2024-10-15 07:38] LABS: MANUAL DIFF REFLEX YES
[2024-10-15 07:57] LABS: ALKALINE PHOSPHATASE 138 U/L (46-116); BUN 23 mg/dl (9-23); CHLORIDE 104 mmol/L (98-107); POTASSIUM 3.2 mmol/L (3.4-5.1); SGPT/ALT 713 U/L (5-49); TOTAL PROTEIN 5.1 gm/dL (6.0-8.0)
[2024-10-15 08:15] LABS: POLYCHROMASIA SLIGHT; TARGET CELLS FEW; TOTAL CELLS COUNTED 100 #CELLS; VACUOLATION OF NEUTROPHILS SLIGHT
[2024-10-15 08:16] LABS: PLATELET SUFFICIENCY LOW (NORMAL)
[2024-10-15 08:36] LABS: ABG BASE EXCESS 10.8 mmol/L (-2.0-3.0); ABG O2 SATURATION 92.6 % (94.0-98.0); ARTERIAL BLOOD GAS PH 7.516 (7.350-7.450); ARTERIAL BLOOD GAS PO2 61.6 mmHg (83.0-108.0)
[2024-10-15] MEDS ORDERED: RIFAXIMIN 550 MG TAB OGT SCH ×2 (10:00→16:00)
[2024-10-15] MEDS ORDERED: TRIAMCINOLONE T SCH (10:00)
[2024-10-15] MEDS ORDERED: NYSTATIN T SCH (10:00)
[2024-10-15] MEDS ORDERED: dexmedeTOMIDine IN 0.9 % NACL 100 ML IV SCH (10:20)
[2024-10-15 13:32] LABS: ABG O2 SATURATION 91.3 % (94.0-98.0); ARTERIAL BLOOD GAS PH 7.506 (7.350-7.450); ARTERIAL BLOOD GAS PO2 55.3 mmHg (83.0-108.0)
[2024-10-15 13:37] LABS: ABG BASE EXCESS 10.3 mmol/L (-2.0-3.0)
[2024-10-15] MEDS ORDERED: Metoprolol Tartrate 25 MG TAB PO SCH (14:00)
[2024-10-15] MEDS ORDERED: Midazolam Hydrochloride 5 MG/5 ML VIAL IV PRN (16:45)
[2024-10-15] MEDS ORDERED: VANCOMYCIN/WATER FOR INJ (PEG) 300 ML IV SCH (20:00)
[2024-10-16] VITALS (11 sets, daily range): BP systolic 117–147; BP diastolic 50–79
[2024-10-16 05:20] LABS: BUN 25 mg/dl (9-23); CHLORIDE 104 mmol/L (98-107); POTASSIUM 2.6 mmol/L (3.4-5.1)
[2024-10-16 05:57] LABS: HEMATOCRIT 37.6 % (37.0-47.0); MEAN CELL VOLUME 92.2 fl (81.0-99.0); MEAN CORPUSCULAR HGB 28.7 pg (27.0-31.0); MEAN CORPUSCULAR HGB CONC 31.1 g/dl (33.0-37.0); MEAN PLATELET VOLUME 10.7 fl (9.6-12.3); PLATELET COUNT AUTOMATED 91 10*3/uL (130-400); RED BLOOD COUNT 4.08 10*6/uL (4.10-5.10); RED CELL DISTRI WIDTH 18.6 % (0-14.5); WHITE BLOOD COUNT 13.4 10*3/uL (4.8-10.8)
[2024-10-16 06:07] LABS: HBsAG SCREEN Negative (Negative); HCV Ab Non Reactive (Non Reactive); HEP B CORE Ab, IgM Negative (Negative)
[2024-10-16 06:38] LABS: MANUAL DIFF REFLEX YES
[2024-10-16 07:02] LABS: POLYCHROMASIA SLIGHT; TARGET CELLS FEW; TOTAL CELLS COUNTED 100 #CELLS
[2024-10-16 07:03] LABS: OVALOCYTES FEW
[2024-10-16 07:04] LABS: PLATELET SUFFICIENCY LOW (NORMAL)
[2024-10-16 07:20] LABS: ABG BASE EXCESS 9.6 mmol/L (-2.0-3.0); ABG O2 SATURATION 95.4 % (94.0-98.0); ARTERIAL BLOOD GAS PH 7.516 (7.350-7.450); ARTERIAL BLOOD GAS PO2 73.6 mmHg (83.0-108.0)
[2024-10-16] MEDS ORDERED: POTASSIUM CHLORIDE IN WATER 100 ML IV SCH (08:00)
[2024-10-16 09:48] LABS: ABG BASE EXCESS 10.9 mmol/L (-2.0-3.0); ABG O2 SATURATION 95.5 % (94.0-98.0); ARTERIAL BLOOD GAS PH 7.511 (7.350-7.450)
[2024-10-16] MEDS ORDERED: Hydrocortisone Sodium Succin 100 MG/2 ML VIAL IV SCH (10:00)
[2024-10-16] MEDS ORDERED: acetaZOLAMIDE 250 MG TAB PO SCH (10:00)
[2024-10-16] MEDS ORDERED: Metoprolol Tartrate 25 MG TAB PO SCH (14:00)
[2024-10-16 15:55] LABS: ABG O2 SATURATION 94.6 % (94.0-98.0); ARTERIAL BLOOD GAS PH 7.507 (7.350-7.450); ARTERIAL BLOOD GAS PO2 74.5 mmHg (83.0-108.0)
[2024-10-16 15:56] LABS: ABG BASE EXCESS 11.1 mmol/L (-2.0-3.0)
[2024-10-17] VITALS (10 sets, daily range): BP systolic 105–152; BP diastolic 54–74
[2024-10-17 04:56] LABS: ALKALINE PHOSPHATASE 129 U/L (46-116); BUN 23 mg/dl (9-23); CHLORIDE 104 mmol/L (98-107); SGPT/ALT 361 U/L (5-49); TOTAL PROTEIN 5.2 gm/dL (6.0-8.0)
[2024-10-17] MEDS ORDERED: FOAM BANDAGE 5X5 T ONE (05:04)
[2024-10-17 05:11] LABS: POTASSIUM 2.2 mmol/L (3.4-5.1)
[2024-10-17] MEDS ORDERED: POTASSIUM CHLORIDE 100 ML IV SCH ×3 (06:00→17:00)
[2024-10-17 06:10] LABS: HEMATOCRIT 38.4 % (37.0-47.0); MEAN CELL VOLUME 93.4 fl (81.0-99.0); MEAN CORPUSCULAR HGB 28.7 pg (27.0-31.0); MEAN CORPUSCULAR HGB CONC 30.7 g/dl (33.0-37.0); MEAN PLATELET VOLUME 11.5 fl (9.6-12.3); PLATELET COUNT AUTOMATED 70 10*3/uL (130-400); RED BLOOD COUNT 4.11 10*6/uL (4.10-5.10); RED CELL DISTRI WIDTH 18.4 % (0-14.5); WHITE BLOOD COUNT 16.4 10*3/uL (4.8-10.8)
[2024-10-17 06:22] LABS: MANUAL DIFF REFLEX YES
[2024-10-17 06:39] LABS: PLATELET SUFFICIENCY LOW (NORMAL); TOTAL CELLS COUNTED 100 #CELLS
[2024-10-17 06:40] LABS: ROULEAUX SLIGHT
[2024-10-17 07:52] LABS: ABG O2 SATURATION 88.6 % (94.0-98.0); ARTERIAL BLOOD GAS PH 7.439 (7.350-7.450); ARTERIAL BLOOD GAS PO2 55.8 mmHg (83.0-108.0)
[2024-10-17 07:54] LABS: ABG BASE EXCESS 3.4 mmol/L (-2.0-3.0)
[2024-10-17] MEDS ORDERED: Chlorhexidine Gluconate 15 ML MOUTHWASH T SCH (10:00)
[2024-10-17] MEDS ORDERED: LORazepam 2 MG/ML VIAL IV PRN (11:55)
[2024-10-17] MEDS ORDERED: BUDESONIDE 0.5 MG AMP NEB SCH (16:05)
[2024-10-17] MEDS ORDERED: Albuterol Sulf/Ipratropium 3 ML VIAL NEB SCH (16:05)
[2024-10-17 16:16] LABS: BUN 24 mg/dl (9-23); CHLORIDE 106 mmol/L (98-107); POTASSIUM 3.1 mmol/L (3.4-5.1)
[2024-10-18] VITALS (26 sets, daily range): BP systolic 81–141; BP diastolic 45–81
[2024-10-18] MEDS ORDERED: SODIUM CHLORIDE 0.9% 250 ML IV ONE ×3 (01:15→08:45)
[2024-10-18 06:05] LABS: ALKALINE PHOSPHATASE 110 U/L (46-116); BUN 22 mg/dl (9-23); CHLORIDE 108 mmol/L (98-107); POTASSIUM 2.7 mmol/L (3.4-5.1); SGPT/ALT 233 U/L (5-49)
[2024-10-18 06:11] LABS: HEMATOCRIT 36.9 % (37.0-47.0); MEAN CELL VOLUME 90.4 fl (81.0-99.0); MEAN CORPUSCULAR HGB 28.2 pg (27.0-31.0); MEAN CORPUSCULAR HGB CONC 31.2 g/dl (33.0-37.0); MEAN PLATELET VOLUME 11.6 fl (9.6-12.3); PLATELET COUNT AUTOMATED 78 10*3/uL (130-400); RED BLOOD COUNT 4.08 10*6/uL (4.10-5.10); RED CELL DISTRI WIDTH 18.3 % (0-14.5); WHITE BLOOD COUNT 16.9 10*3/uL (4.8-10.8)
[2024-10-18 06:19] LABS: MANUAL DIFF REFLEX YES
[2024-10-18 06:55] LABS: PLATELET SUFFICIENCY LOW (NORMAL); TOTAL CELLS COUNTED 100 #CELLS
[2024-10-18 06:56] LABS: OVALOCYTES FEW; SCHISTOCYTES FEW
[2024-10-18 07:45] LABS: ABG O2 SATURATION 94.5 % (94.0-98.0); ARTERIAL BLOOD GAS PH 7.445 (7.350-7.450); ARTERIAL BLOOD GAS PO2 73.5 mmHg (83.0-108.0)
[2024-10-18] MEDS ORDERED: DIGOXIN 500 MCG/2 ML AMP IV ONE ×2 (08:35→15:20)
[2024-10-18] MEDS ORDERED: POTASSIUM CHLORIDE 100 ML IV SCH (09:00)
[2024-10-18] MEDS ORDERED: Chlorhexidine Gluconate 15 ML MOUTHWASH T SCH (10:00)
[2024-10-18] MEDS ORDERED: dilTIAZem Hydrochloride 100 ML IV SCH (11:45)
[2024-10-18] MEDS ORDERED: dilTIAZem Hydrochloride 100 ML IV ONE (12:06)
[2024-10-18] MEDS ORDERED: ALBUMIN 5% 250 ML IV ONE (13:25)
[2024-10-18] MEDS ORDERED: risperiDONE 0.25 MG TAB PO SCH (13:25)
[2024-10-18] MEDS ORDERED: LORazepam 2 MG/ML VIAL IV SCH (13:30)
[2024-10-18] MEDS ORDERED: Metoprolol Tartrate 5 MG/5 ML VIAL IV ONE (13:41)
[2024-10-18 14:22] LABS: ALKALINE PHOSPHATASE 120 U/L (46-116); BUN 20 mg/dl (9-23); CHLORIDE 109 mmol/L (98-107); SGPT/ALT 229 U/L (5-49); TOTAL PROTEIN 5.5 gm/dL (6.0-8.0)
[2024-10-18 14:23] LABS: POTASSIUM 3.7 mmol/L (3.4-5.1)
[2024-10-18] MEDS ORDERED: Metoprolol Tartrate 5 MG/5 ML VIAL IV SCH (18:00)
[2024-10-18] MEDS ORDERED: DEXTROSE 5% 1,000 ML IV SCH (18:25)
[2024-10-19] VITALS (10 sets, daily range): BP systolic 104–150; BP diastolic 49–79
[2024-10-19 05:11] LABS: BUN 18 mg/dl (9-23); CHLORIDE 111 mmol/L (98-107); POTASSIUM 3.4 mmol/L (3.4-5.1)
[2024-10-19 06:38] LABS: HEMATOCRIT 35.2 % (37.0-47.0); MEAN CORPUSCULAR HGB 28.9 pg (27.0-31.0); MEAN CORPUSCULAR HGB CONC 30.7 g/dl (33.0-37.0); MEAN PLATELET VOLUME 12.6 fl (9.6-12.3); PLATELET COUNT AUTOMATED 95 10*3/uL (130-400); RED BLOOD COUNT 3.74 10*6/uL (4.10-5.10); RED CELL DISTRI WIDTH 18.5 % (0-14.5); WHITE BLOOD COUNT 16.6 10*3/uL (4.8-10.8)
[2024-10-19 06:40] LABS: MANUAL DIFF REFLEX YES
[2024-10-19 06:41] LABS: MEAN CELL VOLUME 94.1 fl (81.0-99.0)
[2024-10-19 07:43] LABS: OVALOCYTES FEW; PLATELET SUFFICIENCY LOW (NORMAL); POLYCHROMASIA SLIGHT; TARGET CELLS FEW; TOTAL CELLS COUNTED 100 #CELLS
[2024-10-19] MEDS ORDERED: LORazepam 2 MG/ML VIAL IV PRN (08:16)
[2024-10-19] MEDS ORDERED: Piperacillin Sodium/Tazobact 50 ML IV SCH (08:30)
[2024-10-19] MEDS ORDERED: FUROSEMIDE 20 MG/2 ML VIAL IV SCH (10:00)
[2024-10-19] MEDS ORDERED: QUEtiapine FUMARATE 25 MG TAB NG SCH (10:00)
[2024-10-19] MEDS ORDERED: LEVOFLOXACIN 50 ML IV SCH (10:00)
[2024-10-19] MEDS ORDERED: Acetaminophen/Hydrocodone 5 MG/325 MG TABLET PO ONE (13:45)
[2024-10-19] MEDS ORDERED: Metoprolol Tartrate 25 MG TAB PO SCH (14:00)
[2024-10-20] VITALS (16 sets, daily range): BP systolic 101–152; BP diastolic 39–96
[2024-10-20 05:29] LABS: BUN 18 mg/dl (9-23); CHLORIDE 109 mmol/L (98-107); POTASSIUM 3.3 mmol/L (3.4-5.1)
[2024-10-20 06:09] LABS: HEMATOCRIT 36.7 % (37.0-47.0); MEAN CELL VOLUME 96.6 fl (81.0-99.0); MEAN CORPUSCULAR HGB 28.2 pg (27.0-31.0); MEAN CORPUSCULAR HGB CONC 29.2 g/dl (33.0-37.0); MEAN PLATELET VOLUME 12.4 fl (9.6-12.3); PLATELET COUNT AUTOMATED 95 10*3/uL (130-400); RED CELL DISTRI WIDTH 18.4 % (0-14.5); WHITE BLOOD COUNT 15.5 10*3/uL (4.8-10.8)
[2024-10-20 06:14] LABS: MANUAL DIFF REFLEX YES
[2024-10-20 06:52] LABS: PLATELET SUFFICIENCY LOW (NORMAL); TARGET CELLS FEW; TOTAL CELLS COUNTED 100 #CELLS
[2024-10-20 07:34] LABS: ABG O2 SATURATION 95.1 % (94.0-98.0); ARTERIAL BLOOD GAS PH 7.389 (7.350-7.450); ARTERIAL BLOOD GAS PO2 79.8 mmHg (83.0-108.0)
[2024-10-20 07:35] LABS: ABG BASE EXCESS 5.9 mmol/L (-2.0-3.0)
[2024-10-20] MEDS ORDERED: HYDROmorphONE Hydrochloride 0.5 MG/0.5 ML SYRINGE IV ONE (08:35)
[2024-10-20] MEDS ORDERED: POTASSIUM CHLORIDE 20 MEQ TAB PO ONE (08:50)
[2024-10-20] MEDS ORDERED: Pantoprazole Sodium 40 MG VIAL IV SCH (09:50)
[2024-10-20] MEDS ORDERED: NYSTATIN 15 GM BOT T SCH (10:00)
[2024-10-20] MEDS ORDERED: traMADol Hydrochloride 50 MG TAB PO SCH (10:00)
[2024-10-20] MEDS ORDERED: QUEtiapine FUMARATE 25 MG TAB NG SCH (16:00)
[2024-10-20 19:05] LABS: BILIRUBIN 1+ (Negative); BLOOD 3+ (Negative); CLARITY Clear (Clear); COLOR Dark Yellow (Yellow); GLUCOSE Negative (Negative); KETONE Trace (Negative); LEUKO ESTERASE Trace (Negative); NITRITE Negative (Negative); SPECIFIC GRAVITY >= 1.030 (1.001-1.030)
[2024-10-20 19:22] LABS: BACTERIA 1+; RBC 41-50 rbc/hpf (0-2)
[2024-10-20] MEDS ORDERED: VANCOMYCIN/WATER FOR INJ (PEG) 300 ML IV ONE (20:00)
[2024-10-20] MEDS ORDERED: Meropenem 1 GM in SODIUM CHLORIDE 0.9% 100 ML IV SCH (22:00)
[2024-10-21] VITALS (8 sets, daily range): BP systolic 108–169; BP diastolic 49–88
[2024-10-21 05:18] LABS: BUN 15 mg/dl (9-23); CHLORIDE 106 mmol/L (98-107); POTASSIUM 3.5 mmol/L (3.4-5.1)
[2024-10-21 06:03] LABS: HEMATOCRIT 34.8 % (37.0-47.0); MEAN CELL VOLUME 95.1 fl (81.0-99.0); MEAN CORPUSCULAR HGB 28.4 pg (27.0-31.0); MEAN CORPUSCULAR HGB CONC 29.9 g/dl (33.0-37.0); MEAN PLATELET VOLUME 12.7 fl (9.6-12.3); PLATELET COUNT AUTOMATED 101 10*3/uL (130-400); RED BLOOD COUNT 3.66 10*6/uL (4.10-5.10); RED CELL DISTRI WIDTH 18.2 % (0-14.5); WHITE BLOOD COUNT 17.1 10*3/uL (4.8-10.8)
[2024-10-21 06:40] LABS: MANUAL DIFF REFLEX YES
[2024-10-21 06:42] LABS: TOTAL CELLS COUNTED 100 #CELLS
[2024-10-21 06:43] LABS: PLATELET SUFFICIENCY LOW (NORMAL)
[2024-10-21 06:44] LABS: TARGET CELLS FEW
[2024-10-21 06:45] LABS: TOXIC GRANULATION SLIGHT
[2024-10-21] MEDS ORDERED: Vancomycin Hydrochloride 1,000 MG in SODIUM CHLORIDE 0.9% 250 ML IV SCH (08:00)
[2024-10-21] MEDS ORDERED: HYDROmorphONE Hydrochloride 0.5 MG/0.5 ML SYRINGE IV SCH (08:33)
[2024-10-21] MEDS ORDERED: Levalbuterol Hydrochloride 0.63 MG VIAL NEB SCH (08:42)
[2024-10-21] MEDS ORDERED: SPIRONOLACTONE 25 MG TAB NG SCH (10:00)
[2024-10-21] MEDS ORDERED: METOLAZONE 2.5 MG TAB PO SCH (10:00)
[2024-10-21] MEDS ORDERED: HEPARIN SODIUM 250 ML IV SCH ×3 (11:30→11:40)
[2024-10-21 12:00] LABS: ACT PARTIAL THROMBO TIME 31.8 SECONDS (20.0-32.1)
[2024-10-21] MEDS ORDERED: BUMETANIDE 1 MG/4 ML VIAL IV SCH (12:50)
[2024-10-21] MEDS ORDERED: Meropenem 1 GM in SODIUM CHLORIDE 0.9% 100 ML IV SCH (14:00)
[2024-10-22] VITALS: BP 92/54
[2024-10-22 04:00] VITALS: BP 103/62
[2024-10-22 07:57] LABS: HEMATOCRIT 35.4 % (37.0-47.0); MEAN CELL VOLUME 94.7 fl (81.0-99.0); MEAN CORPUSCULAR HGB 29.1 pg (27.0-31.0); MEAN CORPUSCULAR HGB CONC 30.8 g/dl (33.0-37.0); MEAN PLATELET VOLUME 12.5 fl (9.6-12.3); PLATELET COUNT AUTOMATED 110 10*3/uL (130-400); RED BLOOD COUNT 3.74 10*6/uL (4.10-5.10); RED CELL DISTRI WIDTH 17.5 % (0-14.5); WHITE BLOOD COUNT 18.5 10*3/uL (4.8-10.8)
[2024-10-22 07:58] LABS: MANUAL DIFF REFLEX YES
[2024-10-22 08:00] VITALS: BP 122/67
[2024-10-22 08:29] LABS: ALKALINE PHOSPHATASE 117 U/L (46-116); BUN 14 mg/dl (9-23); CHLORIDE 97 mmol/L (98-107); POTASSIUM 2.7 mmol/L (3.4-5.1); SGPT/ALT 70 U/L (5-49); TOTAL PROTEIN 4.9 gm/dL (6.0-8.0)
[2024-10-22 08:31] LABS: PLATELET SUFFICIENCY LOW (NORMAL); TOTAL CELLS COUNTED 100 #CELLS
[2024-10-22 08:32] LABS: MICROCYTOSIS SLIGHT; STOMATOCYTE FEW
[2024-10-22] MEDS ORDERED: BUMETANIDE 1 MG/4 ML VIAL IV SCH (10:00)
[2024-10-22] MEDS ORDERED: Menthol/Zinc Oxide 4 GM THIN T SCH (11:05)
[2024-10-22] MEDS ORDERED: Menthol/Zinc Oxide 4 GM THIN T PRN (11:05)
[2024-10-22] MEDS ORDERED: POTASSIUM CHLORIDE 100 ML IV SCH ×2 (11:15→17:00)
[2024-10-22] MEDS ORDERED: POTASSIUM CHLORIDE 20 MEQ TAB NG ONE ×3 (11:15→22:10)
[2024-10-22] MEDS ORDERED: POTASSIUM CHLORIDE 100 ML IV ONE ×3 (11:45)
[2024-10-22 12:00] VITALS: BP 106/52
[2024-10-22 15:50] LABS: BUN 13 mg/dl (9-23); CHLORIDE 95 mmol/L (98-107); POTASSIUM 2.8 mmol/L (3.4-5.1)
[2024-10-22 16:00] VITALS: BP 117/64
[2024-10-22] MEDS ORDERED: MAGNESIUM SULFATE 50 ML IV ONE (16:15)
[2024-10-22 20:00] VITALS: BP 124/60
[2024-10-22 21:16] LABS: POTASSIUM 3.1 mmol/L (3.4-5.1)
[2024-10-22] MEDS ORDERED: MAGNESIUM SULFATE 100 ML IV ONE (22:10)
[2024-10-23] VITALS: BP 138/54
[2024-10-23 04:00] VITALS: BP 139/54
[2024-10-23 05:26] LABS: BUN 13 mg/dl (9-23); CHLORIDE 93 mmol/L (98-107); POTASSIUM 3.1 mmol/L (3.4-5.1)
[2024-10-23 05:53] LABS: HEMATOCRIT 31.9 % (37.0-47.0); MEAN CELL VOLUME 92.5 fl (81.0-99.0); MEAN CORPUSCULAR HGB 28.1 pg (27.0-31.0); MEAN CORPUSCULAR HGB CONC 30.4 g/dl (33.0-37.0); MEAN PLATELET VOLUME 12.8 fl (9.6-12.3); PLATELET COUNT AUTOMATED 126 10*3/uL (130-400); RED BLOOD COUNT 3.45 10*6/uL (4.10-5.10); RED CELL DISTRI WIDTH 17.2 % (0-14.5); WHITE BLOOD COUNT 18.7 10*3/uL (4.8-10.8)
[2024-10-23 07:02] LABS: MANUAL DIFF REFLEX YES
[2024-10-23 07:04] LABS: TOTAL CELLS COUNTED 100 #CELLS
[2024-10-23 07:05] LABS: PLATELET SUFFICIENCY LOW (NORMAL)
[2024-10-23 07:07] LABS: TARGET CELLS FEW
[2024-10-23 08:00] VITALS: BP 131/60
[2024-10-23] MEDS ORDERED: MAGNESIUM OXIDE 400 MG TAB PO SCH (10:00)
[2024-10-23] MEDS ORDERED: Hydrocortisone Sodium Succin 100 MG/2 ML VIAL IV SCH (10:00)
[2024-10-23] MEDS ORDERED: BUMETANIDE 1 MG/4 ML VIAL IV SCH (10:00)
[2024-10-23] MEDS ORDERED: APIXABAN 5 MG TAB PO SCH (10:00)
[2024-10-23] MEDS ORDERED: acetaZOLAMIDE 250 MG TAB PO SCH (10:00)
[2024-10-23] MEDS ORDERED: Water, Sterile 10 ML VIAL ONE (10:06)
[2024-10-23 12:00] VITALS: BP 111/58
[2024-10-23] MEDS ORDERED: POTASSIUM CHLORIDE 20 MEQ TAB PO SCH (12:00)
[2024-10-23] MEDS ORDERED: FOAM BANDAGE 5X5 T ONE (12:08)
[2024-10-23 16:00] VITALS: BP 108/49
[2024-10-23 20:00] VITALS: BP 108/49
[2024-10-24] VITALS: BP 117/51
[2024-10-24 04:00] VITALS: BP 114/56
[2024-10-24 06:07] LABS: BASO % 0.1 % (0.0-1.0); EOS # 0.2 10*3/uL (0.0-0.4); EOS % 0.9 % (1.0-4.0); HEMATOCRIT 31.4 % (37.0-47.0); MEAN CELL VOLUME 93.7 fl (81.0-99.0); MEAN CORPUSCULAR HGB 29.3 pg (27.0-31.0); MEAN CORPUSCULAR HGB CONC 31.2 g/dl (33.0-37.0); MEAN PLATELET VOLUME 12.8 fl (9.6-12.3); MONO # 0.8 10*3/uL (0.1-1.0); MONO % 4.4 % (3.0-9.0); NEUT % 89.3 % (47.0-73.0); PLATELET COUNT AUTOMATED 143 10*3/uL (130-400); RED BLOOD COUNT 3.35 10*6/uL (4.10-5.10); RED CELL DISTRI WIDTH 17.3 % (0-14.5); WHITE BLOOD COUNT 16.9 10*3/uL (4.8-10.8)
[2024-10-24 07:05] LABS: ALKALINE PHOSPHATASE 143 U/L (46-116); BUN 13 mg/dl (9-23); CHLORIDE 98 mmol/L (98-107); POTASSIUM 3.4 mmol/L (3.4-5.1); SGPT/ALT 65 U/L (5-49)
[2024-10-24] MEDS ORDERED: HYDROmorphONE Hydrochloride 0.5 MG/0.5 ML SYRINGE IV PRN (07:44)
[2024-10-24 08:00] VITALS: BP 125/59
[2024-10-24 08:01] LABS: ABG O2 SATURATION 95.5 % (94.0-98.0); ARTERIAL BLOOD GAS PH 7.444 (7.350-7.450); ARTERIAL BLOOD GAS PO2 81.5 mmHg (83.0-108.0)
[2024-10-24 08:05] LABS: ABG BASE EXCESS 11.4 mmol/L (-2.0-3.0)
[2024-10-24] MEDS ORDERED: POTASSIUM CHLORIDE 20 MEQ TAB PO SCH (10:00)
[2024-10-24 12:00] VITALS: BP 128/59
[2024-10-24] MEDS ORDERED: FOAM BANDAGE 5X5 T ONE (14:00)
[2024-10-24 16:00] VITALS: BP 112/61
[2024-10-24 20:00] VITALS: BP 122/54
[2024-10-24] MEDS ORDERED: QUEtiapine FUMARATE 25 MG TAB NG SCH (22:00)
[2024-10-25] VITALS (7 sets, daily range): BP systolic 94–134; BP diastolic 53–77
[2024-10-25] MEDS ORDERED: hydrOXYzine hydrochloride 10 MG TAB PO PRN (07:30)
[2024-10-25 07:35] LABS: BASO % 0.2 % (0.0-1.0); EOS # 0.1 10*3/uL (0.0-0.4); EOS % 0.7 % (1.0-4.0); HEMATOCRIT 30.3 % (37.0-47.0); MEAN CELL VOLUME 95.9 fl (81.0-99.0); MEAN CORPUSCULAR HGB 29.1 pg (27.0-31.0); MEAN CORPUSCULAR HGB CONC 30.4 g/dl (33.0-37.0); MEAN PLATELET VOLUME 12.7 fl (9.6-12.3); MONO # 0.6 10*3/uL (0.1-1.0); MONO % 4.7 % (3.0-9.0); NEUT # 11.4 10*3/uL (2.3-7.9); PLATELET COUNT AUTOMATED 145 10*3/uL (130-400); RED BLOOD COUNT 3.16 10*6/uL (4.10-5.10); RED CELL DISTRI WIDTH 17.3 % (0-14.5); WHITE BLOOD COUNT 12.9 10*3/uL (4.8-10.8)
[2024-10-25 07:52] LABS: BUN 10 mg/dl (9-23); CHLORIDE 102 mmol/L (98-107); POTASSIUM 3.2 mmol/L (3.4-5.1)
[2024-10-25 08:10] LABS: ABG BASE EXCESS 9.5 mmol/L (-2.0-3.0); ABG O2 SATURATION 89.7 % (94.0-98.0); ARTERIAL BLOOD GAS PH 7.44 (7.350-7.450); ARTERIAL BLOOD GAS PO2 55.1 mmHg (83.0-108.0)
[2024-10-25] MEDS ORDERED: POTASSIUM CHLORIDE 20 MEQ TAB PO ONE (08:10)
[2024-10-25] MEDS ORDERED: BUMETANIDE 1 MG/4 ML VIAL IV SCH (10:00)
[2024-10-26 04:00] VITALS: BP 139/89
[2024-10-26] MEDS ORDERED: CHAIR CUSHION DEVICE ONE (05:08)
[2024-10-26] MEDS ORDERED: Pantoprazole Sodium 40 MG TAB PO SCH (06:00)
[2024-10-26 06:02] LABS: BUN 11 mg/dl (9-23); CHLORIDE 102 mmol/L (98-107)
[2024-10-26 06:37] LABS: BASO % 0.1 % (0.0-1.0); EOS # 0.1 10*3/uL (0.0-0.4); EOS % 0.7 % (1.0-4.0); HEMATOCRIT 31.7 % (37.0-47.0); MEAN CELL VOLUME 94.9 fl (81.0-99.0); MEAN CORPUSCULAR HGB 28.4 pg (27.0-31.0); MEAN PLATELET VOLUME 12.5 fl (9.6-12.3); MONO # 0.7 10*3/uL (0.1-1.0); MONO % 4.3 % (3.0-9.0); NEUT # 13.6 10*3/uL (2.3-7.9); NEUT % 88.9 % (47.0-73.0); PLATELET COUNT AUTOMATED 186 10*3/uL (130-400); RED BLOOD COUNT 3.34 10*6/uL (4.10-5.10); RED CELL DISTRI WIDTH 17.2 % (0-14.5); WHITE BLOOD COUNT 15.3 10*3/uL (4.8-10.8)
[2024-10-26] MEDS ORDERED: POTASSIUM CHLORIDE 20 MEQ TAB PO SCH (07:00)
[2024-10-26 08:00] VITALS: BP 115/52
[2024-10-26] MEDS ORDERED: SACUBITRIL/VALSARTAN 24 MG-26 MG TABLET PO SCH (10:00)
[2024-10-26] MEDS ORDERED: predniSONE 10 MG TAB PO SCH (10:00)
[2024-10-26 12:00] VITALS: BP 149/73
[2024-10-26 16:00] VITALS: BP 106/71
[2024-10-26 20:00] VITALS: BP 115/72
[2024-10-26] MEDS ORDERED: Alteplase, Recombinant 2 MG/2 ML VIAL IJ ONE (20:40)
[2024-10-26 22:00] VITALS: BP 115/72
[2024-10-26] MEDS ORDERED: FOAM BANDAGE 1 EACH BANDAGE T ONE (22:47)
[2024-10-26] MEDS ORDERED: LEPTOSPERMUM HONEY 0.5 OZ TUBE T ONE (22:47)
[2024-10-27 04:00] VITALS: BP 127/88
[2024-10-27 05:09] LABS: BUN 11 mg/dl (9-23); CHLORIDE 103 mmol/L (98-107)
[2024-10-27 05:59] LABS: POTASSIUM 4.1 mmol/L (3.4-5.1)
[2024-10-27 06:01] LABS: BASO % 0.1 % (0.0-1.0); EOS # 0.1 10*3/uL (0.0-0.4); EOS % 0.4 % (1.0-4.0); HEMATOCRIT 32.5 % (37.0-47.0); MEAN CELL VOLUME 93.7 fl (81.0-99.0); MEAN CORPUSCULAR HGB 28.8 pg (27.0-31.0); MEAN CORPUSCULAR HGB CONC 30.8 g/dl (33.0-37.0); MEAN PLATELET VOLUME 12.3 fl (9.6-12.3); MONO # 0.8 10*3/uL (0.1-1.0); PLATELET COUNT AUTOMATED 204 10*3/uL (130-400); RED BLOOD COUNT 3.47 10*6/uL (4.10-5.10); RED CELL DISTRI WIDTH 17.7 % (0-14.5); WHITE BLOOD COUNT 15.9 10*3/uL (4.8-10.8)
[2024-10-27 08:00] VITALS: BP 108/59
[2024-10-27] MEDS ORDERED: traMADol Hydrochloride 50 MG TAB PO PRN (08:30)
[2024-10-27] MEDS ORDERED: acetaZOLAMIDE 250 MG TAB PO SCH (10:00)
[2024-10-27] MEDS ORDERED: SACUBITRIL/VALSARTAN 24 MG-26 MG TABLET PO SCH (10:00)
[2024-10-27] MEDS ORDERED: BUMETANIDE 1 MG TAB PO SCH (10:00)
[2024-10-27 12:00] VITALS: BP 101/59
[2024-10-27 15:17] LABS: ABG BASE EXCESS 2.9 mmol/L (-2.0-3.0); ABG O2 SATURATION 89.9 % (94.0-98.0); ARTERIAL BLOOD GAS PH 7.477 (7.350-7.450)
[2024-10-27 16:00] VITALS: BP 91/58
[2024-10-27 20:00] VITALS: BP 100/52
[2024-10-27] MEDS ORDERED: risperiDONE 0.25 MG TAB PO SCH (22:00)
[2024-10-28] VITALS (8 sets, daily range): BP systolic 72–118; BP diastolic 40–72
[2024-10-28 05:27] LABS: ALKALINE PHOSPHATASE 198 U/L (46-116); BUN 11 mg/dl (9-23); CHLORIDE 101 mmol/L (98-107); SGPT/ALT 59 U/L (5-49); TOTAL PROTEIN 5.3 gm/dL (6.0-8.0)
[2024-10-28 05:38] LABS: POTASSIUM 3.1 mmol/L (3.4-5.1)
[2024-10-28 06:29] LABS: BASO % 0.1 % (0.0-1.0); EOS # 0.1 10*3/uL (0.0-0.4); EOS % 0.5 % (1.0-4.0); HEMATOCRIT 30.7 % (37.0-47.0); MEAN CELL VOLUME 93.6 fl (81.0-99.0); MEAN CORPUSCULAR HGB 29.3 pg (27.0-31.0); MEAN CORPUSCULAR HGB CONC 31.3 g/dl (33.0-37.0); MEAN PLATELET VOLUME 12.1 fl (9.6-12.3); MONO # 0.6 10*3/uL (0.1-1.0); MONO % 4.7 % (3.0-9.0); NEUT # 11.1 10*3/uL (2.3-7.9); NEUT % 85.8 % (47.0-73.0); PLATELET COUNT AUTOMATED 253 10*3/uL (130-400); RED BLOOD COUNT 3.28 10*6/uL (4.10-5.10); RED CELL DISTRI WIDTH 17.7 % (0-14.5); WHITE BLOOD COUNT 12.9 10*3/uL (4.8-10.8)
[2024-10-28] MEDS ORDERED: POTASSIUM CHLORIDE 20 MEQ TAB PO ONE (08:00)
[2024-10-28] MEDS ORDERED: POTASSIUM CHLORIDE 20 MEQ TAB PO SCH (10:00)
[2024-10-28] MEDS ORDERED: SODIUM CHLORIDE 0.9% 500 ML IV ONE ×2 (10:10→10:53)
[2024-10-28] MEDS ORDERED: Atropine Sulfate/Diphenoxyla 1 TAB TAB PO PRN (16:30)
[2024-10-28] MEDS ORDERED: ZINC OXIDE 1 OZ TUBE T SCH (22:00)
[2024-10-29] VITALS: BP 114/60
[2024-10-29 04:00] VITALS: BP 126/68
[2024-10-29 06:18] LABS: BUN 10 mg/dl (9-23); CHLORIDE 102 mmol/L (98-107)
[2024-10-29 06:44] LABS: BASO % 0.2 % (0.0-1.0); EOS # 0.1 10*3/uL (0.0-0.4); EOS % 0.5 % (1.0-4.0); HEMATOCRIT 32.2 % (37.0-47.0); MEAN CELL VOLUME 92.8 fl (81.0-99.0); MEAN CORPUSCULAR HGB 29.4 pg (27.0-31.0); MEAN CORPUSCULAR HGB CONC 31.7 g/dl (33.0-37.0); MEAN PLATELET VOLUME 11.5 fl (9.6-12.3); MONO # 0.6 10*3/uL (0.1-1.0); MONO % 5.2 % (3.0-9.0); NEUT # 10.4 10*3/uL (2.3-7.9); NEUT % 83.3 % (47.0-73.0); PLATELET COUNT AUTOMATED 284 10*3/uL (130-400); RED BLOOD COUNT 3.47 10*6/uL (4.10-5.10); RED CELL DISTRI WIDTH 18.1 % (0-14.5); WHITE BLOOD COUNT 12.4 10*3/uL (4.8-10.8)
[2024-10-29 08:00] VITALS: BP 86/56
[2024-10-29] MEDS ORDERED: Metoprolol Tartrate 25 MG TAB PO SCH (10:00)
[2024-10-29] MEDS ORDERED: Doxycycline Hyclate 100 MG CAPSULE PO SCH (10:00)
[2024-10-29] MEDS ORDERED: Tamsulosin Hydrochloride 0.4 MG CAP PO SCH (11:15)
[2024-10-29 12:00] VITALS: BP 97/48
[2024-10-29] MEDS ORDERED: MESALAMINE 400 MG TAB PO SCH (14:00)
[2024-10-29] MEDS ORDERED: DIGOXIN 125 MCG TAB PO SCH (14:00)
[2024-10-29 16:00] VITALS: BP 85/58
[2024-10-29] MEDS ORDERED: DIGOXIN 500 MCG/2 ML AMP IV ONE ×2 (16:00→16:30)
[2024-10-29 20:00] VITALS: BP 92/60
[2024-10-29] MEDS ORDERED: SODIUM CHLORIDE 0.9% 500 ML IV ONE (21:15)
[2024-10-29] MEDS ORDERED: Metoprolol Tartrate 50 MG TAB PO SCH ×2 (22:00)
[2024-10-30] VITALS: BP 96/51
[2024-10-30 05:19] LABS: ALKALINE PHOSPHATASE 345 U/L (46-116); BUN 12 mg/dl (9-23); CHLORIDE 101 mmol/L (98-107); POTASSIUM 3.3 mmol/L (3.4-5.1); SGPT/ALT 61 U/L (5-49); TOTAL PROTEIN 5.4 gm/dL (6.0-8.0)
[2024-10-30 05:24] LABS: DIGOXIN 1.09 ng/ml (0.8-2.0)
[2024-10-30 06:12] LABS: BASO % 0.4 % (0.0-1.0); EOS # 0.1 10*3/uL (0.0-0.4); EOS % 1.2 % (1.0-4.0); HEMATOCRIT 31.8 % (37.0-47.0); MEAN CELL VOLUME 93.3 fl (81.0-99.0); MEAN CORPUSCULAR HGB 28.7 pg (27.0-31.0); MEAN CORPUSCULAR HGB CONC 30.8 g/dl (33.0-37.0); MONO # 0.6 10*3/uL (0.1-1.0); MONO % 6.9 % (3.0-9.0); NEUT # 6.5 10*3/uL (2.3-7.9); NEUT % 76.9 % (47.0-73.0); PLATELET COUNT AUTOMATED 281 10*3/uL (130-400); RED BLOOD COUNT 3.41 10*6/uL (4.10-5.10); RED CELL DISTRI WIDTH 17.7 % (0-14.5); WHITE BLOOD COUNT 8.4 10*3/uL (4.8-10.8)
[2024-10-30] MEDS ORDERED: POTASSIUM CHLORIDE 20 MEQ TAB PO ONE (07:25)
[2024-10-30 08:00] VITALS: BP 106/65
[2024-10-30] MEDS ORDERED: TOPROL XL25 MG PO (08:36)
[2024-10-30] MEDS ORDERED: TAMSULOSIN HCL0.4 MG PO (08:36)
[2024-10-30] MEDS ORDERED: LEVALBUTER0.63 MG/4 NEB (08:36)
[2024-10-30] MEDS ORDERED: DIGOXIN125 MCG PO (08:36)
[2024-10-30] MEDS ORDERED: DOXYCYCLINE MO100 MG PO (08:36)
[2024-10-30] MEDS ORDERED: RISPERIDONE0.25 M2 PO (08:39)
[2024-10-30] MEDS ORDERED: BUMETANIDE1 MG PO (08:39)
[2024-10-30] MEDS ORDERED: MAGNESIUM OXID400 MG PO (08:39)
[2024-10-30] MEDS ORDERED: POTASSIUM CHLO20 ME4 PO (08:39)
[2024-10-30] MEDS ORDERED: ALDACTONE25 MG NG (08:39)
[2024-10-30] MEDS ORDERED: ATARAX,VISTARIL10 MG PO (08:39)
[2024-10-30] MEDS ORDERED: ENTRESTO 24 MG1 EACH PO (08:39)
[2024-10-30] MEDS ORDERED: DELZICOL400 M2 PO (08:39)
[2024-10-30] MEDS ORDERED: PREDNISONE10 MG PO (08:40)
[2024-10-30] MEDS ORDERED: POTASSIUM CHLORIDE 20 MEQ TAB PO SCH (10:00)
[2024-10-30 12:00] VITALS: BP 121/53
== END 2024-10-30 16:35 | DRG 870 ==
LOC: ED 09:45 → EDHOLD 13:28 → ICCU 13:28 → 4E 15:41 → ICCU 16:26
PROVIDERS: Internal Medicine; Internal Medicine Critical Care Medicine; Internal Medicine Nephrology; ADMIT Internal Medicine; ATTEND Internal Medicine
PROC: 0BH17EZ Insertion of Endotracheal Airway into Trachea, Via Natural or Artificial Opening (ICD-10-PCS; principal; 2024-10-11)
PROC: 5A1955Z Respiratory Ventilation, Greater than 96 Consecutive Hours (ICD-10-PCS; 2024-10-11)
PROC: 5A09357 Assistance with Respiratory Ventilation, Less than 24 Consecutive Hours, Continuous Positive Airway Pressure (ICD-10-PCS; 2024-10-16)
PROC: 5A09357 Assistance with Respiratory Ventilation, Less than 24 Consecutive Hours, Continuous Positive Airway Pressure (ICD-10-PCS; 2024-10-17)
PROC: 5A09357 Assistance with Respiratory Ventilation, Less than 24 Consecutive Hours, Continuous Positive Airway Pressure (ICD-10-PCS; 2024-10-18)
PROC: 5A09357 Assistance with Respiratory Ventilation, Less than 24 Consecutive Hours, Continuous Positive Airway Pressure (ICD-10-PCS; 2024-10-19)
PROC: 5A09357 Assistance with Respiratory Ventilation, Less than 24 Consecutive Hours, Continuous Positive Airway Pressure (ICD-10-PCS; 2024-10-20)
PROC: 5A09357 Assistance with Respiratory Ventilation, Less than 24 Consecutive Hours, Continuous Positive Airway Pressure (ICD-10-PCS; 2024-10-21)
PROC: 5A09357 Assistance with Respiratory Ventilation, Less than 24 Consecutive Hours, Continuous Positive Airway Pressure (ICD-10-PCS; 2024-10-22)
PROC: 5A09357 Assistance with Respiratory Ventilation, Less than 24 Consecutive Hours, Continuous Positive Airway Pressure (ICD-10-PCS; 2024-10-23)
PROC: 5A0935A Assistance with Respiratory Ventilation, Less than 24 Consecutive Hours, High Flow/Velocity Cannula (ICD-10-PCS; 2024-10-24)
PROC: 5A09357 Assistance with Respiratory Ventilation, Less than 24 Consecutive Hours, Continuous Positive Airway Pressure (ICD-10-PCS; 2024-10-24)
PROC: 5A09357 Assistance with Respiratory Ventilation, Less than 24 Consecutive Hours, Continuous Positive Airway Pressure (ICD-10-PCS; 2024-10-25)
PROC: 5A09357 Assistance with Respiratory Ventilation, Less than 24 Consecutive Hours, Continuous Positive Airway Pressure (ICD-10-PCS; 2024-10-26)
DX: A41.89 Other specified sepsis (principal); J18.9 Pneumonia, unspecified organism; J80 Acute respiratory distress syndrome; R65.21 Severe sepsis with septic shock; I50.43 Acute on chronic combined systolic (congestive) and diastolic (congestive) heart failure; G93.41 Metabolic encephalopathy; J44.1 Chronic obstructive pulmonary disease with (acute) exacerbation; E87.0 Hyperosmolality and hypernatremia; J44.0 Chronic obstructive pulmonary disease with (acute) lower respiratory infection; I48.21 Permanent atrial fibrillation; N17.9 Acute kidney failure, unspecified; I42.9 Cardiomyopathy, unspecified; L03.116 Cellulitis of left lower limb; L03.115 Cellulitis of right lower limb; E87.3 Alkalosis; F05 Delirium due to known physiological condition; J91.8 Pleural effusion in other conditions classified elsewhere; Z68.1 Body mass index [BMI] 19.9 or less, adult; I80.9 Phlebitis and thrombophlebitis of unspecified site; R62.7 Adult failure to thrive; D69.6 Thrombocytopenia, unspecified; E83.42 Hypomagnesemia; R33.8 Other retention of urine; D63.1 Anemia in chronic kidney disease; F17.210 Nicotine dependence, cigarettes, uncomplicated; E11.9 Type 2 diabetes mellitus without complications; R74.01 Elevation of levels of liver transaminase levels; E66.01 Morbid (severe) obesity due to excess calories; E87.6 Hypokalemia; E87.8 Other disorders of electrolyte and fluid balance, not elsewhere classified; K52.9 Noninfective gastroenteritis and colitis, unspecified; K21.9 Gastro-esophageal reflux disease without esophagitis; N18.32 Chronic kidney disease, stage 3b; T50.2X5A Adverse effect of carbonic-anhydrase inhibitors, benzothiadiazides and other diuretics, initial encounter; Z79.899 Other long term (current) drug therapy; I25.2 Old myocardial infarction; Z79.01 Long term (current) use of anticoagulants; Z79.2 Long term (current) use of antibiotics; Z86.718 Personal history of other venous thrombosis and embolism; Y92.89 Other specified places as the place of occurrence of the external cause

== ENCOUNTER 2025-01-24 16:36 | Emergency (ER) | payer SELFPAY ==
[~2025-01-24] VITALS: Ht 154.9 cm; Wt 68.9 kg
[~2025-01-24 16:36] MED LIST changes: +ALDACTONE25 MG NG; +ATARAX,VISTARIL10 MG PO; +BUMETANIDE1 MG PO; +DELZICOL400 M2 PO; +DIGOXIN125 MCG PO; +DOXYCYCLINE MO100 MG PO; +ENTRESTO 24 MG1 EACH PO; +LEVALBUTER0.63 MG/4 NEB; +MAGNESIUM OXID400 MG PO; +POTASSIUM CHLO20 ME4 PO; +PREDNISONE10 MG PO; +RISPERIDONE0.25 M2 PO; +TAMSULOSIN HCL0.4 MG PO; +TOPROL XL25 MG PO
[2025-01-24 16:43] VITALS: BP 170/97
[2025-01-24] MEDS ORDERED: MAGNESIUM SULFATE 50 ML IV ONE (16:45)
[2025-01-24] MEDS ORDERED: FLORAJEN ACIDO1 EACH PO (16:56)
[2025-01-24] MEDS ORDERED: MAGNESIUM OXID400 M1 PO (16:57)
[2025-01-24] MEDS ORDERED: MIDODRINE HCL10 MG PO (16:58)
[2025-01-24] MEDS ORDERED: NEURONTIN300 MG PO (16:58)
[2025-01-24] MEDS ORDERED: ATORVASTATIN CA10 M1 PO (16:59)
[2025-01-24] MEDS ORDERED: FAMOTIDINE20 M1 PO (17:02)
[2025-01-24] MEDS ORDERED: BUDESONIDE-FO10.2 GM INH (17:04)
[2025-01-24] MEDS ORDERED: POTASSIUM99 M7 PO (17:05)
[2025-01-24] MEDS ORDERED: PROBIOTIC250 MG PO (17:07)
[2025-01-24] MEDS ORDERED: LOMOTIL 2.5-0.1 EACH PO (17:07)
[2025-01-24 17:09] LABS: MEAN CELL VOLUME 100.5 fl (81.0-99.0); MEAN CORPUSCULAR HGB 30.4 pg (27.0-31.0); MEAN PLATELET VOLUME 10.3 fl (9.6-12.3); NUCLEATED RED BLOOD CELL 0.0 % (0.0-0.0); NUCLEATED RED BLOOD CELL 0.0 10*3/uL (0.0-0.0); PLATELET COUNT AUTOMATED 262 10*3/uL (130-400); RED CELL DISTRI WIDTH 13.3 % (0-14.5)
[2025-01-24] MEDS ORDERED: MULTIPLE VITAM1 EAC1 PO (17:09)
[2025-01-24 17:10] LABS: MANUAL DIFF REFLEX YES
[2025-01-24] MEDS ORDERED: FUROSEMIDE 40 MG/4 ML VIAL IV ONE (17:15)
[2025-01-24 17:25] LABS: BUN 13 mg/dl (9-23)
[2025-01-24] MEDS ORDERED: BUMETANIDE1 MG PO (17:38)
[2025-01-24 17:40] LABS: PLATELET SUFFICIENCY NORMAL (NORMAL)
[2025-01-24] MEDS ORDERED: INSULIN REGULAR, HUMAN 1 UNIT/0.01 ML IV ONE (17:40)
== END 2025-01-24 18:05 | disposition home or self-care (01) ==
LOC: ED 16:36
PROVIDERS: Emergency Medicine
DX: I50.9 Heart failure, unspecified (principal); E11.9 Type 2 diabetes mellitus without complications; F41.9 Anxiety disorder, unspecified; E78.00 Pure hypercholesterolemia, unspecified; I48.91 Unspecified atrial fibrillation; F17.210 Nicotine dependence, cigarettes, uncomplicated; Z90.49 Acquired absence of other specified parts of digestive tract; Z90.710 Acquired absence of both cervix and uterus; Z88.5 Allergy status to narcotic agent

== ENCOUNTER → 2025-05-14 | Outpatient (CLI) | payer MEDICARE ==
[~2025-05-14] MED LIST changes: +ALDACTONE25 M1 PO; +ATORVASTATIN CA10 M1 PO; +BUDESONIDE-FO10.2 GM INH; +CEFUROXIME250 MG PO; +Coumadin2.5 MG PO; +FAMOTIDINE20 M1 PO; +FLORAJEN ACIDO1 EACH PO; +LOMOTIL 2.5-0.1 EACH PO; +Lopressor25 MG PO; +MAGNESIUM OXID400 M1 PO; +METOPROLOL SUCC25 M2 PO; +MIDODRINE HCL10 MG PO; +MULTIPLE VITAM1 EAC1 PO; +PACERONE200 MG PO; +POTASSIUM CHLOR8 ME1 PO; +POTASSIUM99 M7 PO; +PROBIOTIC250 MG PO; +TRADJENTA5 M1 PO; +VIBRA-TAB100 MG PO; +WARFARIN2 MG PO
== END | disposition home or self-care (01) ==
LOC: ORTHO 10:25
PROVIDERS: ATTEND Orthopaedic Surgery
DX: S62.221D Displaced Rolando's fracture, right hand, subsequent encounter for fracture with routine healing (principal); S62.291D Other fracture of first metacarpal bone, right hand, subsequent encounter for fracture with routine healing; X58.XXXD Exposure to other specified factors, subsequent encounter